=== PATIENT | female | born 1950 | race Caucasian/White ===

== ENCOUNTER 2020-01-09 11:53 | Inpatient (IN) ==
[2020-01-09] MEDS ORDERED: IOPAMIDOL 100 ML BOTTLE IV ONE (11:54)
[2020-01-09] MEDS ORDERED: ONDANSETRON 4 MG/2 ML VIAL IV ONE (12:13)
[2020-01-09] MEDS ORDERED: 0.9 % SODIUM CHLORIDE 500 ML IV ONE (12:13)
--- NOTE | 2020-01-09 12:23 | Emergency Department Note ---
Abdominal Pain HPI - General Chief Complaint: Abdominal Pain Stated Complaint: Abd pain Time Seen by Provider: 01/09/20 11:57 Source: patient Mode of arrival: wheelchair Limitations: no limitations - History of Present Illness HPI Narrative: 69-year-old female patient presents emergency department with chief complaint of worsening lower abdominal pain x2 days. Patient tells me she underwent an EGD study yesterday by Dr. Beckman. During that time she had several areas of her esophagus ablated. She was discharged in good condition. She had some moderate epigastric pain. This is settled into her lower abdomen yesterday. She woke up feeling "better" until she tried to eat. Afterward, she developed exquisite, sharp right lower abdominal pain. She admits to history of appendectomy and total hysterectomy. She admits to some nausea but no vomiting. She admits to a history of UTI but denies any hematuria, dysuria, frequency, urgency, or sensa tion of inability to empty her bladder. She denies focal weakness. She does admit to a recent history of anemia associated with stent placement in October. Since that time she has had some bleeding per rectum. She underwent a blood transfusion 2 days ago prior to the EGD. She has not had any recurrent bleeding from her rectum since ablation was performed yesterday. Review of her active problems shows the following: Angiodysplasia of duodenum, hypertensive renal disease, hypertension, post menopause, intermittent claudication, hypertriglyceridemia, osteopenia, acute pyelonephritis, scoliosis, hypertension, arthritis, vitamin D deficiency, fatigue, acid reflux, peripheral neuropathy, gout, coronary artery disease. - Related Data Home Medications Medication Instructions Recorded Confirmed multivitamin 1 tab PO QDAY 05/22/15 01/09/20 aspirin 81 mg tablet,delayed 81 mg PO QDAY 12/24/15 01/09/20 release omega-3 fatty acids 1,000 mg 4,000 mg PO QDAY cap 11/20/17 01/09/20 capsule omega red 1 capsule PO QDAY 04/26/18 01/09/20 cholecalciferol (vitamin D3) 25 1,000 unit PO QDAY 04/30/19 01/09/20 mcg (1,000 unit) capsule coenzyme Q10 120 mg PO QDAY 07/19/19 01/09/20 fexofenadine 180 mg tablet 180 mg PO QDAY 07/19/19 01/09/20 cranberry extract 300 mg tablet 300 mg PO QDAY 09/30/19 01/09/20 atorvastatin 80 mg tablet 80 mg PO QHS 11/20/19 01/09/20 carvedilol 25 mg tablet 25 mg PO BID 11/20/19 01/09/20 ezetimibe 10 mg tablet 10 mg PO QDAY 11/20/19 01/09/20 febuxostat 80 mg tablet 40 mg PO QDAY tab 11/25/19 01/09/20 soy isofla-blk cohosh-mag bark 155 1 cap PO DAILY 11/25/19 01/09/20 mg capsule vitamin B complex 1 cap PO QDAY 11/25/19 01/09/20 acetaminophen 325 mg tablet 650 mg PO Q4H PRN 12/09/19 01/09/20 Clopidogrel Bisulfate [Plavix] 75 mg PO DAILY 01/06/20 01/09/20 Pantoprazole [Protonix] 40 mg PO ONCE 01/06/20 01/09/20 Previous Rx's Medication Instructions Recorded cyclobenzaprine 10 mg tablet 10 mg PO TID PRN #90 tab 09/03/19 varenicline 1 mg tablet 1 mg PO BID #30 tab 12/09/19 omeprazole 40 mg capsule,delayed 40 mg PO BID #180 cap 12/11/19 release ticagrelor 90 mg tablet 90 mg PO BID #60 tab 12/12/19 Allergies Allergy/AdvReac Type Severity Reaction Status Date / Time Amoxicillin [From Augmentin] Allergy Unknown pt unsure Verified 01/09/20 11:53 clavulanic acid Allergy Unknown pt unsure Verified 01/09/20 11:53 [From Augmentin] clindamycin Allergy Unknown red rash, Verified 01/09/20 11:53 itching Ygfdijt-Suw-Zrx Reductase Allergy Unknown Unknown Verified 01/09/20 11:53 Inhibitor fenofibrate AdvReac Unknown headache, Verified 01/09/20 11:53 body ache Review of Systems All systems ED: reviewed and negative except as stated. Abdominal Pain PMH - Social History Smoking status: Former smoker Physical Exam Limitations: no limitations General appearance: alert, grimacing, other (Well-developed, well-nourished, 69-year-old female patient obviously very uncomfortable as she cradles her lower abdomen.) Head: atraumatic, normocephalic Eye: Present: normal appearance, PERRL, EOMI. Absent: scleral icterus, conjunctival injection ENT: Present: normal oropharynx, mucous membranes moist Neck: Present: trachea midline. Absent: lymphadenopathy, thyromegaly Chest: Present: symmetric chest wall rise Respiratory: Present: normal lung sounds bilaterally. Absent: respiratory distress, rales/crackles, wheezes, stridor, accessory muscle use, prolonged expiratory phase Cardiovascular: Present: regular rate, normal rhythm. Absent: systolic murmur, diastolic murmur Abdominal: Present: soft, tenderness, guarding, normal bowel sounds. Absent: distention, rebound, rigidity, organomegaly, mass Abdominal tenderness: Present: RLQ, LLQ, moderate Extremities: Present: normal inspection, full ROM, normal capillary refill. Absent: pedal edema Back: Absent: CVA tenderness (R), CVA tenderness (L), spinous process tenderness Neurological: Present: alert, oriented X3 Psychiatric: Present: normal affect, normal mood Skin: Present: warm, dry Course Course Narrative: Patient does have a considerable GI history with undergoing EGD yesterday. She had 2 areas that were ablated. Some of her lower abdominal pain may be associate with this procedure. She was afebrile upon presentation with normal other vital signs. However, she does have considerable tenderness with deep palpation to the right lower quadrant. With this in mind a CT scan with contrast of her abdomen/pelvis was ordered and reviewed. A review the patient's laboratory studies show the following: Cysts CBC WBC 13.6, RBC 3.43, hemoglobin 9.9, crit 30.8, platelet count 276. CMP CO2 21, glucose 116, all others within normal limits. CT scan showed moderate retroperitoneal fluid and gas surrounding the descending duodenum with distention in the right retroperitoneal soft tissues to the pericolonic region. Radiologist is most common cause for this finding would be a perforated duodenal ulcer. He recommended consult with general surgery. After reviewing all the data I discussed these findings with my collaborating physician (Dr. Oneil) who in turn consulted with general surgery (Dr. Blakely). At this time Dr. Blakely is consented to admit the patient to the hospital. He will consult with the restorative art embalmer (Dr. Beckman) who performed the EGD yesterday. At this time all further treatment decisions, modalities, and ultimate patient disposition will be carried out by Dr. Blakely. Vital Signs Temperature 98.6 F 01/09/20 11:53 Pulse Rate 73 01/09/20 11:53 Respiratory Rate 16 01/09/20 11:53 Blood Pressure 172/83 01/09/20 11:53 Pulse Oximetry (%) 100 01/09/20 11:53 Temperature 98.6 F 01/09/20 11:53 Pulse Rate 68 01/09/20 14:13 Respiratory Rate 16 01/09/20 11:53 Blood Pressure 145/56 01/09/20 14:13 Pulse Oximetry (%) 92 01/09/20 14:13 Abdominal Pain - Lab Data Result diagrams: 01/09/20 12:24 01/09/20 12:23 Lab Results 01/09/20 01/09/20 Range/Units 12:23 12:24 WBC 13.6 H (4.50-11.00) K/mcL RBC 3.43 L (3.59-5.38) M/mcL Hgb 9.9 L (11.2-15.7) g/dL Hct 30.8 L (34.1-44.9) % POC Hct 31.0 L (36.0-48.0) % MCV 89.8 (80.0-100.0) fL MCH 28.9 (26.0-34.0) pg MCHC 32.1 (31.0-36.0) g/dL RDW 14.3 (11.5-14.5) % Plt Count 276 (140-440) K/mcL MPV 8.7 (7.4-10.4) fL Gran % 83.5 H (38.0-78.0) % Lymph % (Auto) 7.8 L (15.5-49.0) % [place] % (Auto) 7.2 (1.0-12.0) % Eos % (Auto) 1.2 (0.0-7.0) % Baso % (Auto) 0.3 (0.0-2.0) % Gran # 11.36 H (1.80-8.00) K/mcL Lymph # (Auto) 1.06 L (1.50-4.80) K/mcL [place] # (Auto) 0.98 H (0.10-0.90) K/mcL Eos # (Auto) 0.16 (0.00-0.70) K/mcL Baso # (Auto) 0.04 (0.00-0.30) K/mcL POC Sodium 140 (133-145) mmol/L Sodium 141 (133-145) mmol/L POC Potassium 3.6 (3.3-5.1) mmol/L Potassium 3.6 (3.3-5.1) mmol/L POC Chloride 107 (96-108) mmol/L Chloride 104 (96-108) mmol/L Carbon Dioxide 21 L (22-30) mmol/L POC Total CO2 21 L (22-30) mmol/L Anion Gap 16.0 (8-16) POC BUN 20 (8-23) mg/dl BUN 20 (8-23) mg/dl Creatinine 1.0 (0.6-1.1) mg/dl POC Creatinine 1.0 (0.6-1.1) mg/dl GFR Calculation 57 Glucose 116 H (70-105) mg/dL POC Glucose 117 H (70-105) mg/dL Calcium 9.5 (8.6-10.4) mg/dl POC WB Ioniz Calcium 1.23 (1.16-1.32) mmol/L Total Bilirubin 0.4 (0.0-1.0) mg/dL AST 20 (0-37) U/l ALT 26 (0-40) U/l Alkaline Phosphatase 91 (39-117) U/L Total Protein 6.7 (5.9-8.4) gm/dL Albumin 4.1 (3.2-5.2) gm/dL Globulin 2.6 (2.2-3.7) gm/dL Albumin/Globulin Ratio 1.6 (1.0-2.3) - Radiology Data Radiology results reviewed: Yes I reviewed the patient's radiology results. Ordering Physician: Mak Roach PA-C Date of Service: 01/09/20 Procedure(s): CT abdomen pelvis w con Accession Number(s): [id number] CLINICAL INFORMATION: Right lower quadrant pain COMPARISON: None. TECHNIQUE: Following enteric contrast, 80 cc of Isovue-370 were injected intravenously, and 60 seconds later, 0.625 mm helical slices were obtained from the mid heart through the subtrochanteric regions. Following reconstruction, 2.5 mm sagittal, coronal and axial reformatted images were processed and reviewed at bone, lung and soft tissue windows. Five minutes later, 0.625 mm helical slices were obtained from the mid heart through the kidneys and viewed at soft tissue windows.The exam was performed using radiation dose optimization techniques including, but not limited to, automated exposure control, adjustment of the mA and/or kV according to patient size and use of iterative reconstruction technique. FINDINGS: Lung bases show minimal scattered fibrosis and/or atelectasis. No effusion. The visualized heart is mildly enlarged. There is calcific plaque in the coronary arteries. Abdominal images show 3-4 simple cysts within the liver ranging up to 1.5 cm in the david hepatis. No significant focal hepatic abnormality. The gallbladder and bile ducts are normal in CBD is 5 mm. Scattered simple cysts seen in both kidneys ranging up to 3 cm mid right kidney. A 20 mm well-circumscribed soft tissue nodule left adrenal gland represents a benign adenoma. It is unchanged from a 03/18/2019 are MRI. The right adrenal gland and spleen are normal. The aorta is normal diameter however, there is very heavy calcific plaque in the infrarenal segment. There is also heavy calcific plaque in the common iliac arteries resulting in at least 50% stenosis. 50% or greater stenosis of the celiac, SMA and left renal artery origins also present Pelvic images show hysterectomy and oophorectomy changes. Urinary bladder shows mild cystocele. Moderate gas and fluid are seen in the retroperitoneal tissues surrounding the descending duodenum. Small amount of gas and fluid descends in the posterior right retroperitoneal soft tissues all the way to the pericecal region. 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 The remainder of the small bowel normal. Sigmoid diverticulosis appreciated but the remaining colon is normal. The appendix is surgically absent. Bone windows show severe complex scoliotic curve with chronic lateral compression fractures of L2-L3 and L4. IMPRESSION: 1. Moderate retroperitoneal fluid and gas surrounding the descending duodenum with descension in the right retroperitoneal soft tissues to the pericolonic region. Most common cause for this finding would be a perforated duodenal ulcer. Please consult general surgery. 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 2. The appendix is surgically absent. 3. Sigmoid diverticulosis - no evidence of diverticulitis. 4. Heavy atherosclerotic plaque in the abdominal aorta and branches. There are likely hemodynamically significant stenosis in both common iliac, external iliac arteries and the celiac, SMA and left renal artery origins. Interpreted and Authenticated by: Idris Ace 01/09/20 Disposition Pt seen by REHANGER/PA only: Yes Clinical Impression: Abdominal pain Qualifiers: Abdominal location: generalized Qualified Code(s): R10.84 - Generalized abdominal pain Disposition: Xfer As Inpt ([facility]) Condition: Good Referrals: Leisa Auguste ARNP [Primary Care Provider] -
[2020-01-09] MEDS: HYDROmorphone 0.5 MG/0.5 ML SYRINGE IV PRN ×2 (12:30→12:49)
[2020-01-09 12:36] LABS: POC Blood Urea Nitrogen 20 mg/dl (8-23); POC CO2 21 mmol/L (22-30); POC Calcium, Ionized 1.23 mmol/L (1.16-1.32); POC Chloride 107 mmol/L (96-108); POC Glucose, Random 117 mg/dL (70-105); POC Potassium 3.6 mmol/L (3.3-5.1); POC Sodium 140 mmol/L (133-145)
[2020-01-09 13:14] LABS: Basophils # (Auto) 0.04 K/mcL (0.00-0.30); Basophils % (Auto) 0.3 % (0.0-2.0); Eosinophils # (Auto) 0.16 K/mcL (0.00-0.70); Eosinophils % (Auto) 1.2 % (0.0-7.0); Granulocytes % (Auto) 83.5 % (38.0-78.0); Hematocrit 30.8 % (34.1-44.9); Hemoglobin 9.9 g/dL (11.2-15.7); Lymphocytes # (Auto) 1.06 K/mcL (1.50-4.80); Lymphocytes % (Auto) 7.8 % (15.5-49.0); Mean Cell Volume 89.8 fL (80.0-100.0); Mean Corpuscular HGB Conc 32.1 g/dL (31.0-36.0); Mean Platelet Volume 8.7 fL (7.4-10.4); Monocytes # (Auto) 0.98 K/mcL (0.10-0.90); Monocytes % (Auto) 7.2 % (1.0-12.0); Platelet Count 276 K/mcL (140-440); RBC 3.43 M/mcL (3.59-5.38); Red Cell Distribution Width 14.3 % (11.5-14.5); WBC 13.6 K/mcL (4.50-11.00)
[2020-01-09 13:37] LABS: ALT/SGPT 26 U/l (0-40); AST/SGOT 20 U/l (0-37); Albumin 4.1 gm/dL (3.2-5.2); Albumin/Globulin Ratio 1.6 (1.0-2.3); Alkaline Phosphatase 91 U/L (39-117); Bilirubin,Total 0.4 mg/dL (0.0-1.0); Blood Urea Nitrogen 20 mg/dl (8-23); Calcium 9.5 mg/dl (8.6-10.4); Carbon Dioxide 21 mmol/L (22-30); Chloride 104 mmol/L (96-108); Globulin 2.6 gm/dL (2.2-3.7); Glomerular Filtration Rate 57; Glucose 116 mg/dL (70-105)
--- NOTE | 2020-01-09 14:08 | Cat Scan Report ---
CLINICAL INFORMATION: Right lower quadrant pain COMPARISON: None. TECHNIQUE: Following enteric contrast, 80 cc of Isovue-370 were injected intravenously, and 60 seconds later, 0.625 mm helical slices were obtained from the mid heart through the subtrochanteric regions. Following reconstruction, 2.5 mm sagittal, coronal and axial reformatted images were processed and reviewed at bone, lung and soft tissue windows. Five minutes later, 0.625 mm helical slices were obtained from the mid heart through the kidneys and viewed at soft tissue windows.The exam was performed using radiation dose optimization techniques including, but not limited to, automated exposure control, adjustment of the mA and/or kV according to patient size and use of iterative reconstruction technique. FINDINGS: Lung bases show minimal scattered fibrosis and/or atelectasis. No effusion. The visualized heart is mildly enlarged. There is calcific plaque in the coronary arteries. Abdominal images show 3-4 simple cysts within the liver ranging up to 1.5 cm in the david hepatis. No significant focal hepatic abnormality. The gallbladder and bile ducts are normal in CBD is 5 mm. Scattered simple cysts seen in both kidneys ranging up to 3 cm mid right kidney. A 20 mm well-circumscribed soft tissue nodule left adrenal gland represents a benign adenoma. It is unchanged from a 03/18/2019 are MRI. The right adrenal gland and spleen are normal. The aorta is normal diameter however, there is very heavy calcific plaque in the infrarenal segment. There is also heavy calcific plaque in the common iliac arteries resulting in at least 50% stenosis. 50% or greater stenosis of the celiac, SMA and left renal artery origins also present Pelvic images show hysterectomy and oophorectomy changes. Urinary bladder shows mild cystocele. Moderate gas and fluid are seen in the retroperitoneal tissues surrounding the descending duodenum. Small amount of gas and fluid descends in the posterior right retroperitoneal soft tissues all the way to the pericecal region. 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 The remainder of the small bowel normal. Sigmoid diverticulosis appreciated but the remaining colon is normal. The appendix is surgically absent. Bone windows show severe complex scoliotic curve with chronic lateral compression fractures of L2-L3 and L4. IMPRESSION: 1. Moderate retroperitoneal fluid and gas surrounding the descending duodenum with descension in the right retroperitoneal soft tissues to the pericolonic region. Most common cause for this finding would be a perforated duodenal ulcer. Please consult general surgery. 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 2. The appendix is surgically absent. 3. Sigmoid diverticulosis - no evidence of diverticulitis. 4. Heavy atherosclerotic plaque in the abdominal aorta and branches. There are likely hemodynamically significant stenosis in both common iliac, external iliac arteries and the celiac, SMA and left renal artery origins. Interpreted and Authenticated by: Idris Ace 01/09/20
--- NOTE | 2020-01-09 15:27 | General Surg History&Physical ---
History of Present Illness Patient information: Note initiated : 01/09/20 at 3:24 pm Service Date, if different from initiated Date: [] Patient: Rema Benitez 69 y/o F admitted on for Abd Pain . Chief Complaint: [] HPI: Ms. Benitez is a 69 year old F status post upper endoscopy yesterday with findings AV malformations. She had 2 of these cauterized. She developed pain in the postprocedure period which continued overnight. She will return to the ER today with findings of severe epigastric and right upper quadrant pain. She she had CT of the abdomen which showed free air around the duodenum with some free fluid in the periduodenal space compatible with perforation. Her white blood count is 13,000. Patient has small perforation of duodenum from cauterization and will be treated and observe nonoperatively. It is anticipated that this should heal and she will not need operative therapy Review of Systems - Constitutional fatigue, malaise, weakness - Cardiovascular claudication, no chest pain at rest, no chest pain with activity, no palpatations, no rapid heart rate - Respiratory no cough, no dyspnea on exertion, no wheezing, no chest congestion - Gastrointestinal abdominal pain, bloating, heartburn, nausea, no vomiting - Genitourinary Genitourinary: urinary incontinence - Musculoskeletal arthralgias, back pain, other (mmmmmmmmultiple joint pain) - Integumentary no new lesions, no non-healing lesions, no pruritus, no rash - Neurological no confusion, no dizziness - Psychiatric anxiety, no depression - Endocrine fatigue, no palpitations - Hematologic/Lymphatic no easy bleeding, no easy bruising, no lymphadenopathy - Allergic/Immunologic no tongue swelling, no throat swelling, no uticaria, no wheezing, no lip swelling Past History Past medical history: Coronary artery disease status post stent of right coronary artery Hypertension Chronic kidney disease Degenerative joint disease Chronic back pain Peripheral vascular disease Past surgical history: Abdominal hysterectomy Hemorrhoidectomy Exploratory laparotomy Appendectomy Tubal ligation External iliac angioplasty with stent Past family history: Hypertension Diabetes mellitus Coronary artery disease Prostate cancer Lung cancer Past social history: Former smoker Denies alcohol use Denies drug use Medications and Allergies Home Medications Medication Instructions Recorded Confirmed Type multivitamin 1 tab PO QDAY 05/22/15 01/09/20 History aspirin 81 mg tablet,delayed 81 mg PO QDAY 12/24/15 01/09/20 History release omega-3 fatty acids 1,000 mg 4,000 mg PO QDAY cap 11/20/17 01/09/20 History capsule omega red 1 capsule PO QDAY 04/26/18 01/09/20 History cholecalciferol (vitamin D3) 25 1,000 unit PO QDAY 04/30/19 01/09/20 History mcg (1,000 unit) capsule coenzyme Q10 120 mg PO QDAY 07/19/19 01/09/20 History fexofenadine 180 mg tablet 180 mg PO QDAY 07/19/19 01/09/20 History cyclobenzaprine 10 mg tablet 10 mg PO TID PRN #90 tab 09/03/19 01/09/20 Rx cranberry extract 300 mg tablet 300 mg PO QDAY 09/30/19 01/09/20 History atorvastatin 80 mg tablet 80 mg PO QHS 11/20/19 01/09/20 History carvedilol 25 mg tablet 25 mg PO BID 11/20/19 01/09/20 History ezetimibe 10 mg tablet 10 mg PO QDAY 11/20/19 01/09/20 History febuxostat 80 mg tablet 40 mg PO QDAY tab 11/25/19 01/09/20 History soy isofla-blk cohosh-mag bark 155 1 cap PO DAILY 11/25/19 01/09/20 History mg capsule vitamin B complex 1 cap PO QDAY 11/25/19 01/09/20 History acetaminophen 325 mg tablet 650 mg PO Q4H PRN 12/09/19 01/09/20 History varenicline 1 mg tablet 1 mg PO BID #30 tab 12/09/19 01/09/20 Rx omeprazole 40 mg capsule,delayed 40 mg PO BID #180 cap 12/11/19 01/09/20 Rx release ticagrelor 90 mg tablet 90 mg PO BID #60 tab 12/12/19 01/09/20 Rx Clopidogrel Bisulfate [Plavix] 75 mg PO DAILY 01/06/20 01/09/20 History Pantoprazole [Protonix] 40 mg PO ONCE 01/06/20 01/09/20 History Allergies Allergy/AdvReac Type Severity Reaction Status Date / Time Amoxicillin [From Augmentin] Allergy Unknown pt unsure Verified 01/09/20 11:53 clavulanic acid Allergy Unknown pt unsure Verified 01/09/20 11:53 [From Augmentin] clindamycin Allergy Unknown red rash, Verified 01/09/20 11:53 itching Ouksmtj-Qog-Lic Reductase Allergy Unknown Unknown Verified 01/09/20 11:53 Inhibitor fenofibrate AdvReac Unknown headache, Verified 01/09/20 11:53 body ache Exam Temp Pulse Resp BP Pulse Ox 98.6 F 67 16 168/73 100 01/09/20 11:53 01/09/20 15:04 01/09/20 11:53 01/09/20 15:04 01/09/20 15:04 - General physical appearance well developed, well nourished, no distress - Eyes PERRL, normal ocular movement - ENT normal pinna, normal nares, normal mucosa, no hearing loss, no congestion - Head Head exam IM: Present: atraumatic, normocephalic - Neck no masses, no bruits, trachea midline, no lymphadenopathy, no venous distension - Cardiovascular Cardiovascular exam IM: Present: normal rate and rhythm - Respiratory normal expansion, normal respiratory effort, clear to percussion, clear to auscultation - Abdomen Abdomen: Present: soft, tender (epigastric and right upper quadrant; mild distention;right lower quadrant), bowel sounds, guarding Hernia: Present: none - Genitourinary Present: normal external genitalia - Integumentary Present: no rash, no growths, no abnormal pigmentation - Neurologic Present: normal coordination, normal sensation - Musculoskeletal Present: normal gait, normal posture - Psychiatric Present: oriented to time, oriented to person, oriented to place, speech is normal, memory intact Assessment and Plan (1) Duodenal perforation Status: Acute (2) Angiodysplasia of duodenum Status: Acute (3) CAD (coronary artery disease) Status: Chronic Qualifiers: Coronary Disease-Associated Artery/Lesion type: unspecified vessel or lesion type [place] vs. transplanted heart: [place] heart Associated angina: angina p resence unspecified Qualified Code(s): I25.10 - Atherosclerotic heart disease of [place] coronary artery without angina pectoris (4) CKD (chronic kidney disease) Status: Chronic Qualifiers: Chronic kidney disease stage: stage 2 (mild) Qualified Code(s): N18.2 - Chronic kidney disease, stage 2 (mild)
[2020-01-09] MEDS ORDERED: CEFEPIME 2 GM VIAL IV SCH ×2 (16:00→17:00)
[2020-01-09] MEDS ORDERED: LORazepam 2 MG/ML VIAL IV PRN (16:19)
[2020-01-09] MEDS ORDERED: ONDANSETRON 4 MG/2 ML VIAL IV PRN (16:19)
[2020-01-09] MEDS ORDERED: PROMETHAZINE 25 MG/ML VIAL IV PRN (16:19)
[2020-01-09] MEDS ORDERED: HYDROmorphone 0.5 MG/0.5 ML SYRINGE IV PRN (16:19)
[2020-01-09] MEDS ORDERED: PANTOPRAZOLE 40 MG VIAL IV SCH (17:00)
[2020-01-09] MEDS: 0.9 % SODIUM CHLORIDE 1,000 ML IV SCH (17:01)
[2020-01-09] MEDS: PANTOPRAZOLE 40 MG VIAL IV SCH (17:07)
[2020-01-09] MEDS ORDERED: CARVEDILOL 12.5 MG TABLET PO SCH (17:30)
[2020-01-09] MEDS: CEFEPIME 2 GM VIAL IV SCH (19:13)
[2020-01-09] MEDS: ACETAMINOPHEN 1,000 MG/100 ML BOTTLE IV PRN (19:14)
[2020-01-09] MEDS: 0.9 % SODIUM CHLORIDE 10 ML SYRINGE IV SCH (20:19)
[2020-01-09] MEDS: CARVEDILOL 12.5 MG TABLET PO SCH (20:33)
[2020-01-10] MEDS ORDERED: CEFEPIME 2 GM VIAL IV SCH
[2020-01-10] MEDS: 0.9 % SODIUM CHLORIDE 1,000 ML IV SCH ×3 (01:15→19:35)
[2020-01-10] MEDS: 0.9 % SODIUM CHLORIDE 10 ML SYRINGE IV SCH ×3 (04:42→20:54)
[2020-01-10] MEDS: PANTOPRAZOLE 40 MG VIAL IV SCH ×2 (07:29→16:41)
--- NOTE | 2020-01-10 08:16 | XRay Report ---
CLINICAL INFORMATION: preop evaluation COMPARISON: 07/02/2019 FINDINGS: Heart size, mediastinum and pulmonary vessels are normal. Mild bibasilar airspace disease is more likely atelectasis rather than developing infiltrate. No effusions. Complex scoliotic curve of the thoracic and lumbar spine. NG tip overlies the gastric fundus. IMPRESSION: Mild patchy bibasilar airspace disease - most likely atelectasis. Interpreted and Authenticated by: Idris Ace 01/10/20
--- NOTE | 2020-01-10 08:20 | XRay Report ---
CLINICAL INFORMATION: NG placement COMPARISON: None. FINDINGS: NG tube tip overlies the gastric fundus. Stool gas pattern unremarkable. No free air, soft tissue masses or organomegaly. Right retroperitoneal air, known from probable duodenal rupture on recent abdominal CT, is not well visualized on plain film IMPRESSION: NG tube overlying the gastric fundus. Interpreted and Authenticated by: Idris Ace 01/10/20
[2020-01-10] MEDS ORDERED: CLOPIDOGREL 75 MG TABLET PO SCH (09:00)
[2020-01-10] MEDS: CEFEPIME 2 GM VIAL IV SCH ×2 (09:19→20:41)
--- NOTE | 2020-01-10 10:22 | General Surgery Progress Note ---
Subjective Patient reports: feels better, still having pain, pain is less, no flatus, no bowel movement, afebrile Narrative: Note initiated : 01/10/20 at 10:20 am Service Date, if different from initiated Date: [] Patient: Rema Benitez 69 y/o F admitted on 01/09/20 for Perforated duodenum. Chief Complaint: [patient states that she feels better. She has much less pain. She denies nausea. She has been afebrile. She denies having flatus since admission. She denies pleuritic chest. A.m. labs are pending.] Objective Temp Pulse Resp BP Pulse Ox 98.9 F 74 18 144/63 97 01/10/20 07:41 01/10/20 07:41 01/10/20 07:41 01/10/20 07:41 01/10/20 07:45 - Additional Data Intake & Output - Last 24 hours: Intake & Output 01/08/20 01/09/20 01/10/20 01/11/20 05:59 05:59 05:59 05:59 Intake Total 1100 Output Total 925 200 Balance 175 -200 Weight 130 lb - General physical appearance well developed, well nourished, moderate distress - Eyes PERRL, normal ocular movement - ENT normal pinna, normal nares, normal mucosa, no hearing loss, no congestion - Neck no masses, no bruits, trachea midline, no lymphadenopathy, no venous distension - Respiratory normal expansion, normal respiratory effort, clear to auscultation - Cardiovascular Cardiovascular exam: Present: normal rate and rhythm, RRR, +S1, +S2. Absent: JVD, tachycardia - Abdomen tender (mild tenderness in epigastrium; less tenderness right lower quadrant), bowel sounds (present), surgical scars (none), masses (none) - Integumentary no rash, no growths, no abnormal pigmentation - Neurologic normal coordination, normal sensation - Musculoskeletal normal gait, normal posture - Psychiatric oriented to time, oriented to person, oriented to place, speech is normal, memory intact - Labs 01/09/20 12:24 01/09/20 12:23 Diabetes panel 01/09/20 Range/Units 12:23 Sodium 141 (133-145) mmol/L Potassium 3.6 (3.3-5.1) mmol/L Chloride 104 (96-108) mmol/L Carbon Dioxide 21 L (22-30) mmol/L BUN 20 (8-23) mg/dl Creatinine 1.0 (0.6-1.1) mg/dl Glucose 116 H (70-105) mg/dL Calcium 9.5 (8.6-10.4) mg/dl AST 20 (0-37) U/l ALT 26 (0-40) U/l Alkaline Phosphatase 91 (39-117) U/L Total Protein 6.7 (5.9-8.4) gm/dL Albumin 4.1 (3.2-5.2) gm/dL Calcium panel 01/09/20 Range/Units 12:23 Calcium 9.5 (8.6-10.4) mg/dl Albumin 4.1 (3.2-5.2) gm/dL Pituitary panel 01/09/20 Range/Units 12:23 Sodium 141 (133-145) mmol/L Potassium 3.6 (3.3-5.1) mmol/L Chloride 104 (96-108) mmol/L Carbon Dioxide 21 L (22-30) mmol/L BUN 20 (8-23) mg/dl Creatinine 1.0 (0.6-1.1) mg/dl Glucose 116 H (70-105) mg/dL Calcium 9.5 (8.6-10.4) mg/dl Adrenal panel 01/09/20 Range/Units 12:23 Sodium 141 (133-145) mmol/L Potassium 3.6 (3.3-5.1) mmol/L Chloride 104 (96-108) mmol/L Carbon Dioxide 21 L (22-30) mmol/L BUN 20 (8-23) mg/dl Creatinine 1.0 (0.6-1.1) mg/dl Glucose 116 H (70-105) mg/dL Calcium 9.5 (8.6-10.4) mg/dl Total Bilirubin 0.4 (0.0-1.0) mg/dL AST 20 (0-37) U/l ALT 26 (0-40) U/l Alkaline Phosphatase 91 (39-117) U/L Total Protein 6.7 (5.9-8.4) gm/dL Albumin 4.1 (3.2-5.2) gm/dL Assessment and Plan (1) Duodenal perforation Status: Acute Assessment and plan: Patient is clinically stable and is responding to therapy. She does have atelectasis basilar aspect of her lung and inspiro- care is encouraged. She is afebrile Current Visit: Yes (2) Angiodysplasia of duodenum Status: Acute Current Visit: No (3) CAD (coronary artery disease) Status: Chronic Current Visit: No (4) CKD (chronic kidney disease) Status: Chronic Current Visit: No - Time Spent With Patient Total time spent is greater than 50% in coordination of care (as documented) at patient's floor/unit and/or counseling patient:
[2020-01-10] MEDS: CARVEDILOL 12.5 MG TABLET PO SCH ×2 (11:29→17:38)
[2020-01-10] MEDS: CLOPIDOGREL 75 MG TABLET PO SCH (11:29)
[2020-01-10 12:47] LABS: Basophils # (Auto) 0.03 K/mcL (0.00-0.30); Basophils % (Auto) 0.2 % (0.0-2.0); Eosinophils # (Auto) 0.02 K/mcL (0.00-0.70); Eosinophils % (Auto) 0.1 % (0.0-7.0); Granulocytes % (Auto) 83.1 % (38.0-78.0); Hematocrit 26.5 % (34.1-44.9); Hemoglobin 8.4 g/dL (11.2-15.7); Lymphocytes # (Auto) 1.13 K/mcL (1.50-4.80); Lymphocytes % (Auto) 7.5 % (15.5-49.0); Mean Cell Volume 91.1 fL (80.0-100.0); Mean Corpuscular HGB Conc 31.7 g/dL (31.0-36.0); Mean Platelet Volume 8.9 fL (7.4-10.4); Monocytes # (Auto) 1.37 K/mcL (0.10-0.90); Monocytes % (Auto) 9.1 % (1.0-12.0); Platelet Count 216 K/mcL (140-440); RBC 2.91 M/mcL (3.59-5.38); Red Cell Distribution Width 14.5 % (11.5-14.5); WBC 15.1 K/mcL (4.50-11.00)
[2020-01-11] MEDS: 0.9 % SODIUM CHLORIDE 1,000 ML IV SCH ×5 (00:25→16:16)
[2020-01-11] MEDS: 0.9 % SODIUM CHLORIDE 10 ML SYRINGE IV SCH ×3 (04:09→21:08)
[2020-01-11 06:31] LABS: Basophils # (Auto) 0.03 K/mcL (0.00-0.30); Basophils % (Auto) 0.3 % (0.0-2.0); Eosinophils # (Auto) 0.05 K/mcL (0.00-0.70); Eosinophils % (Auto) 0.4 % (0.0-7.0); Granulocytes % (Auto) 82.1 % (38.0-78.0); Hematocrit 26.3 % (34.1-44.9); Hemoglobin 8.3 g/dL (11.2-15.7); Lymphocytes % (Auto) 9.5 % (15.5-49.0); Mean Cell Volume 90.1 fL (80.0-100.0); Mean Corpuscular HGB Conc 31.6 g/dL (31.0-36.0); Mean Platelet Volume 8.8 fL (7.4-10.4); Monocytes % (Auto) 7.7 % (1.0-12.0); Platelet Count 213 K/mcL (140-440); RBC 2.92 M/mcL (3.59-5.38); Red Cell Distribution Width 14.3 % (11.5-14.5); WBC 11.6 K/mcL (4.50-11.00)
[2020-01-11 07:03] LABS: ALT/SGPT 15 U/l (0-40); AST/SGOT 11 U/l (0-37); Albumin/Globulin Ratio 1.1 (1.0-2.3); Alkaline Phosphatase 70 U/L (39-117); Bilirubin,Direct < 0.2 mg/dL (0.0-0.3); Bilirubin,Total 0.3 mg/dL (0.0-1.0); Blood Urea Nitrogen 12 mg/dl (8-23); Calcium 8.6 mg/dl (8.6-10.4); Carbon Dioxide 20 mmol/L (22-30); Globulin 2.7 gm/dL (2.2-3.7); Glomerular Filtration Rate 75; Glucose 74 mg/dL (70-105); Lactate Dehydrogenase 131 U/L (94-250); Phosphorous 2.7 mg/dL (2.7-4.5); Triglycerides 88 mg/dl (<150); Uric Acid 3.8 mg/dL (2.5-8.0)
[2020-01-11 07:05] LABS: Chloride 109 mmol/L (96-108)
[2020-01-11] MEDS: PANTOPRAZOLE 40 MG VIAL IV SCH ×2 (07:31→17:34)
[2020-01-11] MEDS: CLOPIDOGREL 75 MG TABLET PO SCH (08:05)
[2020-01-11] MEDS: CARVEDILOL 12.5 MG TABLET PO SCH ×2 (08:06→17:34)
[2020-01-11] MEDS: CEFEPIME 2 GM VIAL IV SCH ×2 (08:11→20:58)
[2020-01-11] MEDS ORDERED: MAGNESIUM SULFATE 4 GM/100 ML BAG IV ONE ×2 (11:00→12:00)
--- NOTE | 2020-01-11 11:19 | General Surgery Progress Note ---
Subjective Patient reports: feels better, pain is less, flatus, afebrile Narrative: Note initiated : 01/11/20 at 11:16 am Service Date, if different from initiated Date: [] Patient: Rema Benitez 69 y/o F admitted on 01/09/20 for Perforated duodenum. Chief Complaint: [patient continues to improve. She has less pain. She does have some mouth soreness right lower quadrant. She remains afebrile.] Objective Temp Pulse Resp BP Pulse Ox 98.0 F 74 20 147/65 95 01/11/20 08:00 01/11/20 08:00 01/11/20 08:00 01/11/20 08:00 01/11/20 08:00 - Additional Data Intake & Output - Last 24 hours: Intake & Output 01/09/20 01/10/20 01/11/20 01/12/20 05:59 05:59 05:59 05:59 Intake Total 1100 3175 100 Output Total 925 2000 1200 Balance 175 1175 -1100 Weight 130 lb 131 lb 8 oz - General physical appearance well developed, well nourished, no distress - Eyes PERRL, normal ocular movement - ENT normal pinna, normal nares, normal mucosa, no hearing loss, no congestion - Neck no masses, no bruits, trachea midline, no lymphadenopathy, no venous distension - Respiratory normal expansion, normal respiratory effort, clear to auscultation - Cardiovascular Cardiovascular exam: Present: normal rate and rhythm, RRR, +S1, +S2. Absent: JVD, tachycardia - Abdomen tender (moderate tenderness right lower quadrant laterally; no guarding or rebound; good active bowel sounds; no epigastric tenderness), bowel sounds (pres ent), surgical scars (none), masses (none) - Integumentary no rash, no growths, no abnormal pigmentation - Neurologic normal coordination, normal sensation - Musculoskeletal normal gait, normal posture - Psychiatric oriented to time, oriented to person, oriented to place, speech is normal, memor y intact - Labs 01/11/20 05:15 01/11/20 05:15 Diabetes panel 01/11/20 Range/Units 05:15 Sodium 142 (133-145) mmol/L Potassium 3.3 (3.3-5.1) mmol/L Chloride 109 H (96-108) mmol/L Carbon Dioxide 20 L (22-30) mmol/L BUN 12 (8-23) mg/dl Creatinine 0.8 (0.6-1.1) mg/dl Glucose 74 (70-105) mg/dL Calcium 8.6 (8.6-10.4) mg/dl AST 11 (0-37) U/l ALT 15 (0-40) U/l Alkaline Phosphatase 70 (39-117) U/L Total Protein 5.7 L (5.9-8.4) gm/dL Albumin 3.0 L (3.2-5.2) gm/dL Triglycerides 88 (<150) mg/dl Calcium panel 01/11/20 Range/Units 05:15 Calcium 8.6 (8.6-10.4) mg/dl Phosphorus 2.7 (2.7-4.5) mg/dL Albumin 3.0 L (3.2-5.2) gm/dL Pituitary panel 01/11/20 Range/Units 05:15 Sodium 142 (133-145) mmol/L Potassium 3.3 (3.3-5.1) mmol/L Chloride 109 H (96-108) mmol/L Carbon Dioxide 20 L (22-30) mmol/L BUN 12 (8-23) mg/dl Creatinine 0.8 (0.6-1.1) mg/dl Glucose 74 (70-105) mg/dL Calcium 8.6 (8.6-10.4) mg/dl Adrenal panel 01/11/20 Range/Units 05:15 Sodium 142 (133-145) mmol/L Potassium 3.3 (3.3-5.1) mmol/L Chloride 109 H (96-108) mmol/L Carbon Dioxide 20 L (22-30) mmol/L BUN 12 (8-23) mg/dl Creatinine 0.8 (0.6-1.1) mg/dl Glucose 74 (70-105) mg/dL Calcium 8.6 (8.6-10.4) mg/dl Total Bilirubin 0.3 (0.0-1.0) mg/dL AST 11 (0-37) U/l ALT 15 (0-40) U/l Alkaline Phosphatase 70 (39-117) U/L Total Protein 5.7 L (5.9-8.4) gm/dL Albumin 3.0 L (3.2-5.2) gm/dL Assessment and Plan (1) Duodenal perforation Status: Acute Assessment and plan: Patient is clinically stable and is responding to therapy. We'll repeat CT of abdomen in the morning Check amylase lipase in the a.m. Replace magnesium Current Visit: Yes (2) Angiodysplasia of duodenum Status: Acute Current Visit: No (3) CAD (coronary artery disease) Status: Chronic Current Visit: No (4) CKD (chronic kidney disease) Status: Chronic Current Visit: No - Time Spent With Patient Total time spent is greater than 50% in coordination of care (as documented) at patient's floor/unit and/or counseling patient:
[2020-01-12] MEDS: 0.9 % SODIUM CHLORIDE 1,000 ML IV SCH ×4 (00:17→15:21)
[2020-01-12] MEDS: 0.9 % SODIUM CHLORIDE 10 ML SYRINGE IV SCH ×4 (06:01→20:23)
[2020-01-12 06:09] LABS: Basophils # (Auto) 0.03 K/mcL (0.00-0.30); Basophils % (Auto) 0.3 % (0.0-2.0); Eosinophils # (Auto) 0.23 K/mcL (0.00-0.70); Eosinophils % (Auto) 2.1 % (0.0-7.0); Granulocytes % (Auto) 81.8 % (38.0-78.0); Hematocrit 26.5 % (34.1-44.9); Hemoglobin 8.3 g/dL (11.2-15.7); Lymphocytes # (Auto) 0.98 K/mcL (1.50-4.80); Lymphocytes % (Auto) 8.8 % (15.5-49.0); Mean Cell Volume 90.1 fL (80.0-100.0); Mean Corpuscular HGB Conc 31.3 g/dL (31.0-36.0); Mean Platelet Volume 8.8 fL (7.4-10.4); Monocytes # (Auto) 0.78 K/mcL (0.10-0.90); Platelet Count 228 K/mcL (140-440); RBC 2.94 M/mcL (3.59-5.38); Red Cell Distribution Width 14.3 % (11.5-14.5); WBC 11.1 K/mcL (4.50-11.00)
[2020-01-12 06:29] LABS: ALT/SGPT 13 U/l (0-40); AST/SGOT 12 U/l (0-37); Albumin/Globulin Ratio 1.1 (1.0-2.3); Alkaline Phosphatase 71 U/L (39-117); Bilirubin,Direct < 0.2 mg/dL (0.0-0.3); Bilirubin,Total 0.4 mg/dL (0.0-1.0); Blood Urea Nitrogen 15 mg/dl (8-23); Calcium 8.4 mg/dl (8.6-10.4); Carbon Dioxide 18 mmol/L (22-30); Globulin 2.8 gm/dL (2.2-3.7); Glomerular Filtration Rate 88; Glucose 52 mg/dL (70-105); Lactate Dehydrogenase 130 U/L (94-250); Phosphorous 2.7 mg/dL (2.7-4.5); Triglycerides 99 mg/dl (<150); Uric Acid 5.4 mg/dL (2.5-8.0)
[2020-01-12 06:30] LABS: Chloride 109 mmol/L (96-108)
[2020-01-12] MEDS: PANTOPRAZOLE 40 MG VIAL IV SCH ×2 (07:23→17:10)
[2020-01-12] MEDS: CLOPIDOGREL 75 MG TABLET PO SCH (08:10)
[2020-01-12] MEDS: CEFEPIME 2 GM VIAL IV SCH ×2 (08:11→20:22)
[2020-01-12] MEDS: CARVEDILOL 12.5 MG TABLET PO SCH ×2 (08:11→17:11)
[2020-01-12] MEDS ORDERED: IOPAMIDOL 100 ML BOTTLE IV ONE (08:57)
--- NOTE | 2020-01-12 12:26 | Cat Scan Report ---
CLINICAL INFORMATION: COMPARISON: None. TECHNIQUE: Following enteric contrast, 80 cc of Isovue-370 were injected intravenously, and 60 seconds later, 0.625 mm helical slices were obtained from the mid heart through the subtrochanteric regions. Following reconstruction, 2.5 mm sagittal, coronal and axial reformatted images were processed and reviewed at bone, lung and soft tissue windows. Five minutes later, 0.625 mm helical slices were obtained from the mid heart through the kidneys and viewed at soft tissue windows.The exam was performed using radiation dose optimization techniques including, but not limited to, automated exposure control, adjustment of the mA and/or kV according to patient size and use of iterative reconstruction technique. FINDINGS: Lung bases show minimal scattered fibrosis and/or atelectasis. No effusion. The visualized heart is mildly enlarged. There is calcific plaque in the coronary arteries. Abdominal images show 3-4 simple cysts within the liver ranging up to 1.5 cm in the david hepatis. No significant focal hepatic abnormality. The gallbladder and bile ducts are normal in CBD is 5 mm. Scattered simple cysts seen in both kidneys ranging up to 3 cm mid right kidney. A 20 mm well-circumscribed soft tissue nodule left adrenal gland represents a benign adenoma. It is unchanged from a 03/18/2019 are MRI. The right adrenal gland and spleen are normal. The aorta is normal diameter however, there is very heavy calcific plaque in the infrarenal segment. There is also heavy calcific plaque in the common iliac arteries resulting in at least 50% stenosis. 50% or greater stenosis of the celiac, SMA and left renal artery origins also present Pelvic images show hysterectomy and oophorectomy changes. Urinary bladder shows mild cystocele. Moderate gas and fluid are seen in the retroperitoneal tissues surrounding the descending duodenum. The volume of gas has decreased slightly from the comparison exam three days ago. Unfortunately, the volume fluid in the right retroperitoneal has increased moderately Descension of fluid into the paracolic gutter and pericecal region. The remainder of the small bowel normal. Sigmoid diverticulosis appreciated but the remaining colon is normal. The appendix is surgically absent. Bone windows show severe complex scoliotic curve with chronic lateral compression fractures of L2-L3 and L4. IMPRESSION: 1. Moderate retroperitoneal fluid and gas surrounding the descending duodenum with downward extension into the right retroperitoneal soft tissues to the pericolonic region. The volume of gas has decreased but the volume of fluid is increased. In addition, there is now a moderate free intraperitoneal fluid in the pouch of Jeronimo. Suspect perforation of descending duodenum. 2. The appendix is surgically absent. 3. Sigmoid diverticulosis - no evidence of diverticulitis. 4. Heavy atherosclerotic plaque in the abdominal aorta and branches. There are likely hemodynamically significant stenosis in both common iliac, external iliac arteries and the celiac, SMA and left renal artery origins. Interpreted and Authenticated by: Idris Ace 01/12/20
[2020-01-12] MEDS ORDERED: 0.9 % SODIUM CHLORIDE 10 ML SYRINGE IV PRN (12:31)
[2020-01-12] MEDS ORDERED: TPN PER PHARMACY IV SCH (12:45)
--- NOTE | 2020-01-12 12:50 | General Surgery Progress Note ---
Subjective Patient reports: feels better, pain is less, flatus, no bowel movement, afebrile Narrative: Note initiated : 01/12/20 at 12:50 pm Service Date, if different from initiated Date: [] Patient: Rema Benitez 69 y/o F admitted on 01/09/20 for Perforated duodenum. Chief Complaint: [patient is stable. She states that she has less pain. She denies nausea and she is afebrile. White blood count 11.1, hemoglobin 8.3, hematocrit 26.5, potassium 3.1, BUN 15, creatinine 0.7. CT shows a decrease in free air in the second portion of the duodenum however there is increase in the volume of fluid and there is also fluid in the pouch of Jeronimo. Since her clinical picture is improving she is advised that we will continue her nothing by mouth and start TPN via PICC line and will repeat evaluation in 1 week.] Objective Temp Pulse Resp BP Pulse Ox 98.4 F 69 16 166/78 98 01/12/20 12:00 01/12/20 12:00 01/12/20 12:00 01/12/20 12:00 01/12/20 12:00 - Additional Data Intake & Output - Last 24 hours: Intake & Output 01/10/20 01/11/20 01/12/20 01/13/20 05:59 05:59 05:59 05:59 Intake Total 1100 3175 2150 1000 Output Total 925 2000 3200 1000 Balance 175 1175 -1050 0 Weight 130 lb 131 lb 8 oz 120 lb 8 oz - General physical appearance well developed, well nourished, no distress - Eyes PERRL, normal ocular movement - ENT normal pinna, normal nares, normal mucosa, no hearing loss, no congestion - Neck no masses, no bruits, trachea midline, no lymphadenopathy, no venous distension - Respiratory normal expansion, normal respiratory effort, clear to auscultation - Cardiovascular Cardiovascular exam: Present: normal rate and rhythm, RRR, +S1, +S2. Absent: JVD, tachycardia - Abdomen tender (epigastric right upper quadrant and right lower quadrant tenderness are significantly improved from yesterday in spite of the CT findings), bowel sounds (present), surgical scars (none), masses (none) - Integumentary no rash, no growths, no abnormal pigmentation - Neurologic normal coordination, normal sensation - Musculoskeletal normal gait, normal posture - Psychiatric oriented to time, oriented to person, oriented to place, speech is normal, memory intact - Labs 01/12/20 05:00 01/12/20 05:00 Diabetes panel 01/12/20 Range/Units 05:00 Sodium 144 (133-145) mmol/L Potassium 3.1 L (3.3-5.1) mmol/L Chloride 109 H (96-108) mmol/L Carbon Dioxide 18 L (22-30) mmol/L BUN 15 (8-23) mg/dl Creatinine 0.7 (0.6-1.1) mg/dl Glucose 52 L (70-105) mg/dL Calcium 8.4 L (8.6-10.4) mg/dl AST 12 (0-37) U/l ALT 13 (0-40) U/l Alkaline Phosphatase 71 (39-117) U/L Total Protein 5.8 L (5.9-8.4) gm/dL Albumin 3.0 L (3.2-5.2) gm/dL Triglycerides 99 (<150) mg/dl Calcium panel 01/12/20 Range/Units 05:00 Calcium 8.4 L (8.6-10.4) mg/dl Phosphorus 2.7 (2.7-4.5) mg/dL Albumin 3.0 L (3.2-5.2) gm/dL Pituitary panel 01/12/20 Range/Units 05:00 Sodium 144 (133-145) mmol/L Potassium 3.1 L (3.3-5.1) mmol/L Chloride 109 H (96-108) mmol/L Carbon Dioxide 18 L (22-30) mmol/L BUN 15 (8-23) mg/dl Creatinine 0.7 (0.6-1.1) mg/dl Glucose 52 L (70-105) mg/dL Calcium 8.4 L (8.6-10.4) mg/dl Adrenal panel 01/12/20 Range/Units 05:00 Sodium 144 (133-145) mmol/L Potassium 3.1 L (3.3-5.1) mmol/L Chloride 109 H (96-108) mmol/L Carbon Dioxide 18 L (22-30) mmol/L BUN 15 (8-23) mg/dl Creatinine 0.7 (0.6-1.1) mg/dl Glucose 52 L (70-105) mg/dL Calcium 8.4 L (8.6-10.4) mg/dl Total Bilirubin 0.4 (0.0-1.0) mg/dL AST 12 (0-37) U/l ALT 13 (0-40) U/l Alkaline Phosphatase 71 (39-117) U/L Total Protein 5.8 L (5.9-8.4) gm/dL Albumin 3.0 L (3.2-5.2) gm/dL Assessment and Plan (1) Duodenal perforation Status: Acute Assessment and plan: Patient is clinically stable and is responding to therapy. PICC line for central venous access Start TPN today if possible Continue nasogastric decompression and continue antibiotics Current Visit: Yes (2) Angiodysplasia of duodenum Status: Acute Current Visit: No (3) CAD (coronary artery disease) Status: Chronic Current Visit: No (4) CKD (chronic kidney disease) Status: Chronic Current Visit: No - Time Spent With Patient Total time spent is greater than 50% in coordination of care (as documented) at patient's floor/unit and/or counseling patient:
[2020-01-12] MEDS ORDERED: BENZOCAINE 1 SPRAY BOTTLE TOPICAL ONE (12:55)
[2020-01-12] MEDS ORDERED: POTASSIUM CHLORIDE IV SCH (14:00)
[2020-01-12] MEDS ORDERED: [UNRECOGNIZED DRUG - OTHER] IV SCH (14:00)
[2020-01-12] MEDS ORDERED: MAGNESIUM SULFATE IV SCH (14:00)
[2020-01-12] MEDS ORDERED: CALCIUM GLUCONATE IV SCH (14:00)
--- NOTE | 2020-01-12 18:54 | XRay Report ---
CLINICAL INFORMATION: PICC PLACEMENT COMPARISON: 01/10/2020 FINDINGS: PICC line tip overlies the SVC right atrial junction. NG tube extends off the edge of the film at least the gastric body. Heart size, mediastinum and pulmonary vessels are normal. There is minor bibasilar atelectasis. No effusion. IMPRESSION: PICC line in satisfactory position. Minor bibasilar atelectasis Interpreted and Authenticated by: Idris Ace 01/12/20
--- NOTE | 2020-01-12 19:17 | XRay Report ---
CLINICAL INFORMATION: ng tube repositioned, had been pulled loose COMPARISON: None. FINDINGS: NG tube is coiled in the gastric fundus. Stool gas pattern is unremarkable. Known right retroperitoneal gas on abdominal CT difficult to appreciate on this plain film. No free air IMPRESSION: NG tube in the gastric fundus. Consider advancing the tube 8 cm Interpreted and Authenticated by: Idris Ace 01/12/20
[2020-01-13] MEDS: 0.9 % SODIUM CHLORIDE 1,000 ML IV SCH ×4 (02:03→22:15)
[2020-01-13] MEDS: 0.9 % SODIUM CHLORIDE 10 ML SYRINGE IV SCH ×5 (05:12→20:16)
[2020-01-13 06:07] LABS: Basophils # (Auto) 0.03 K/mcL (0.00-0.30); Basophils % (Auto) 0.3 % (0.0-2.0); Eosinophils # (Auto) 0.17 K/mcL (0.00-0.70); Eosinophils % (Auto) 1.9 % (0.0-7.0); Granulocytes % (Auto) 76.5 % (38.0-78.0); Hematocrit 24.7 % (34.1-44.9); Hemoglobin 7.8 g/dL (11.2-15.7); Lymphocytes # (Auto) 1.02 K/mcL (1.50-4.80); Lymphocytes % (Auto) 11.6 % (15.5-49.0); Mean Cell Volume 88.2 fL (80.0-100.0); Mean Corpuscular HGB Conc 31.6 g/dL (31.0-36.0); Mean Platelet Volume 8.8 fL (7.4-10.4); Monocytes # (Auto) 0.85 K/mcL (0.10-0.90); Monocytes % (Auto) 9.7 % (1.0-12.0); Platelet Count 217 K/mcL (140-440); Red Cell Distribution Width 14.1 % (11.5-14.5); WBC 8.8 K/mcL (4.50-11.00)
[2020-01-13 06:29] LABS: ALT/SGPT 12 U/l (0-40); AST/SGOT 12 U/l (0-37); Albumin 3.1 gm/dL (3.2-5.2); Albumin/Globulin Ratio 1.2 (1.0-2.3); Alkaline Phosphatase 67 U/L (39-117); Bilirubin,Direct < 0.2 mg/dL (0.0-0.3); Bilirubin,Total 0.3 mg/dL (0.0-1.0); Blood Urea Nitrogen 12 mg/dl (8-23); Calcium 8.4 mg/dl (8.6-10.4); Carbon Dioxide 20 mmol/L (22-30); Chloride 108 mmol/L (96-108); Globulin 2.5 gm/dL (2.2-3.7); Glomerular Filtration Rate 92; Glucose 106 mg/dL (70-105); Lactate Dehydrogenase 131 U/L (94-250); Phosphorous 2.4 mg/dL (2.7-4.5); Triglycerides 119 mg/dl (<150); Uric Acid 5.6 mg/dL (2.5-8.0)
[2020-01-13] MEDS: PANTOPRAZOLE 40 MG VIAL IV SCH ×2 (07:15→17:00)
[2020-01-13] MEDS ORDERED: POTASSIUM CHLORIDE 40 MEQ in DEXTROSE 5% IN WATER 500 ML IV ONE (07:42)
[2020-01-13] MEDS: CLOPIDOGREL 75 MG TABLET PO SCH (09:40)
[2020-01-13] MEDS: CARVEDILOL 12.5 MG TABLET PO SCH ×2 (09:40→17:00)
[2020-01-13] MEDS: CEFEPIME 2 GM VIAL IV SCH ×2 (10:21→20:16)
--- NOTE | 2020-01-13 12:39 | General Surgery Progress Note ---
Subjective Patient reports: feels better, pain is less, flatus, bowel movement (Andie is 20 and I will await all ofby), afebrile Narrative: Note initiated : 01/13/20 at 12:36 pm Service Date, if different from initiated Date: [] Patient: Rema Benitez 69 y/o F admitted on 01/09/20 for Perforated duodenum. Chief Complaint: [patient is improved. She has less pain. She denies nausea. She had regular bowel movement without melena. White blood count 8.8, hemoglobin 7.8, hematocrit 24.7, potassium 2.8, BUN 12, creatinine 0.6, phosphorus 2.4.] Objective Temp Pulse Resp BP Pulse Ox 97.7 F 61 20 163/59 100 01/13/20 12:00 01/13/20 12:00 01/13/20 12:00 01/13/20 12:00 01/13/20 12:00 - Additional Data Intake & Output - Last 24 hours: Intake & Output 01/11/20 01/12/20 01/13/20 01/14/20 05:59 05:59 05:59 05:59 Intake Total 3175 2150 2000 1000 Output Total 1999 3200 2600 365 Balance 1175 -1050 -600 635 Weight 131 lb 8 oz 120 lb 8 oz 125 lb - General physical appearance well developed, well nourished, no distress - Eyes PERRL, normal ocular movement - ENT normal pinna, normal nares, normal mucosa, no hearing loss, no congestion - Neck no masses, no bruits, trachea midline, no lymphadenopathy, no venous distension - Respiratory normal expansion, normal respiratory effort, clear to auscultation - Cardiovascular Cardiovascular exam: Present: normal rate and rhythm, RRR, +S1, +S2. Absent: JVD, tachycardia - Abdomen soft (by mouth), non tender, bowel sounds (present), surgical scars (none), masses (none) - Integumentary no rash, no growths, no abnormal pigmentation - Neurologic normal coordination, normal sensation - Musculoskeletal normal gait, normal posture - Psychiatric oriented to time, oriented to person, oriented to place, speech is normal, memory intact - Labs 01/13/20 05:22 01/13/20 05:21 Diabetes panel 01/13/20 Range/Units 05:21 Sodium 141 (133-145) mmol/L Potassium 2.8 L* (3.3-5.1) mmol/L Chloride 108 (96-108) mmol/L Carbon Dioxide 20 L (22-30) mmol/L BUN 12 (8-23) mg/dl Creatinine 0.6 (0.6-1.1) mg/dl Glucose 106 H (70-105) mg/dL Calcium 8.4 L (8.6-10.4) mg/dl AST 12 (0-37) U/l ALT 12 (0-40) U/l Alkaline Phosphatase 67 (39-117) U/L Total Protein 5.6 L (5.9-8.4) gm/dL Albumin 3.1 L (3.2-5.2) gm/dL Triglycerides 119 (<150) mg/dl Calcium panel 01/13/20 Range/Units 05:21 Calcium 8.4 L (8.6-10.4) mg/dl Phosphorus 2.4 L (2.7-4.5) mg/dL Albumin 3.1 L (3.2-5.2) gm/dL Pituitary panel 01/13/20 Range/Units 05:21 Sodium 141 (133-145) mmol/L Potassium 2.8 L* (3.3-5.1) mmol/L Chloride 108 (96-108) mmol/L Carbon Dioxide 20 L (22-30) mmol/L BUN 12 (8-23) mg/dl Creatinine 0.6 (0.6-1.1) mg/dl Glucose 106 H (70-105) mg/dL Calcium 8.4 L (8.6-10.4) mg/dl Adrenal panel 01/13/20 Range/Units 05:21 Sodium 141 (133-145) mmol/L Potassium 2.8 L* (3.3-5.1) mmol/L Chloride 108 (96-108) mmol/L Carbon Dioxide 20 L (22-30) mmol/L BUN 12 (8-23) mg/dl Creatinine 0.6 (0.6-1.1) mg/dl Glucose 106 H (70-105) mg/dL Calcium 8.4 L (8.6-10.4) mg/dl Total Bilirubin 0.3 (0.0-1.0) mg/dL AST 12 (0-37) U/l ALT 12 (0-40) U/l Alkaline Phosphatase 67 (39-117) U/L Total Protein 5.6 L (5.9-8.4) gm/dL Albumin 3.1 L (3.2-5.2) gm/dL Assessment and Plan (1) Duodenal perforation Status: Acute Assessment and plan: Patient is clinically stable and is responding to therapy. Continue nasogastric decompression and continue antibiotics Follow-up CT comparison on of this week Current Visit: Yes (2) Angiodysplasia of duodenum Status: Acute Current Visit: No (3) CAD (coronary artery disease) Status: Chronic Current Visit: No (4) CKD (chronic kidney disease) Status: Chronic Current Visit: No - Time Spent With Patient Total time spent is greater than 50% in coordination of care (as documented) at patient's floor/unit and/or counseling patient:
[2020-01-13] MEDS ORDERED: POTASSIUM CHLORIDE IV SCH (14:00)
[2020-01-13] MEDS ORDERED: CALCIUM GLUCONATE IV SCH (14:00)
[2020-01-13] MEDS ORDERED: [UNRECOGNIZED DRUG - OTHER] IV SCH (14:00)
[2020-01-13] MEDS ORDERED: MAGNESIUM SULFATE IV SCH (14:00)
[2020-01-14] MEDS: 0.9 % SODIUM CHLORIDE 1,000 ML IV SCH ×3 (01:31→15:24)
[2020-01-14] MEDS: 0.9 % SODIUM CHLORIDE 10 ML SYRINGE IV SCH ×5 (05:20→21:07)
[2020-01-14 06:17] LABS: Basophils # (Auto) 0.03 K/mcL (0.00-0.30); Basophils % (Auto) 0.4 % (0.0-2.0); Eosinophils # (Auto) 0.13 K/mcL (0.00-0.70); Eosinophils % (Auto) 1.7 % (0.0-7.0); Granulocytes % (Auto) 72.2 % (38.0-78.0); Hematocrit 23.2 % (34.1-44.9); Hemoglobin 7.3 g/dL (11.2-15.7); Lymphocytes # (Auto) 1.08 K/mcL (1.50-4.80); Lymphocytes % (Auto) 14.1 % (15.5-49.0); Mean Cell Volume 88.2 fL (80.0-100.0); Mean Corpuscular HGB Conc 31.5 g/dL (31.0-36.0); Monocytes # (Auto) 0.89 K/mcL (0.10-0.90); Monocytes % (Auto) 11.6 % (1.0-12.0); Platelet Count 207 K/mcL (140-440); RBC 2.63 M/mcL (3.59-5.38); Red Cell Distribution Width 14.3 % (11.5-14.5); WBC 7.7 K/mcL (4.50-11.00)
[2020-01-14] MEDS: PANTOPRAZOLE 40 MG VIAL IV SCH ×2 (06:30→16:13)
[2020-01-14 06:55] LABS: ALT/SGPT 11 U/l (0-40); AST/SGOT 10 U/l (0-37); Albumin 2.7 gm/dL (3.2-5.2); Albumin/Globulin Ratio 1.1 (1.0-2.3); Alkaline Phosphatase 61 U/L (39-117); Bilirubin,Direct < 0.2 mg/dL (0.0-0.3); Bilirubin,Total 0.2 mg/dL (0.0-1.0); Blood Urea Nitrogen 9 mg/dl (8-23); Calcium 7.9 mg/dl (8.6-10.4); Carbon Dioxide 20 mmol/L (22-30); Chloride 113 mmol/L (96-108); Globulin 2.5 gm/dL (2.2-3.7); Glomerular Filtration Rate 92; Glucose 116 mg/dL (70-105); Lactate Dehydrogenase 128 U/L (94-250); Phosphorous 2.6 mg/dL (2.7-4.5); Triglycerides 118 mg/dl (<150); Uric Acid 3.6 mg/dL (2.5-8.0)
[2020-01-14] MEDS: CARVEDILOL 12.5 MG TABLET PO SCH ×2 (08:08→16:55)
[2020-01-14] MEDS: CEFEPIME 2 GM VIAL IV SCH ×2 (08:08→21:07)
[2020-01-14] MEDS: CLOPIDOGREL 75 MG TABLET PO SCH (08:08)
--- NOTE | 2020-01-14 13:18 | General Surgery Progress Note ---
Subjective Patient reports: feels better, pain is less, flatus, bowel movement, afebrile Narrative: Note initiated : 01/14/20 at 1:15 pm Service Date, if different from initiated Date: [] Patient: Rema Benitez 69 y/o F admitted on 01/09/20 for Perforated duodenum. Chief Complaint: [patient continues to improve. Her pain has resolved. She denies nausea. She remains afebrile. White blood count 7.7, hemoglobin 7.3, hematocrit 23.2, potassium 3.2, magnesium 1.4, phosphorus 2.6.] Objective Temp Pulse Resp BP Pulse Ox 98.9 F 68 16 158/67 98 01/14/20 12:00 01/14/20 12:00 01/14/20 12:00 01/14/20 12:00 01/14/20 12:00 - Additional Data Intake & Output - Last 24 hours: Intake & Output 01/12/20 01/13/20 01/14/20 01/15/20 05:59 05:59 05:59 05:59 Intake Total 2150 2000 2520 1000 Output Total 3200 2600 2715 550 Balance -1050 -600 -195 450 Weight 120 lb 8 oz 125 lb 124 lb 5 oz 124 lb 5 oz - General physical appearance well developed, well nourished, no distress, no pain - Eyes PERRL, normal ocular movement - ENT normal pinna, normal nares, normal mucosa, no hearing loss, no congestion - Neck no masses, no bruits, trachea midline, no lymphadenopathy, no venous distension - Respiratory normal expansion, normal respiratory effort, clear to auscultation - Cardiovascular Cardiovascular exam: Present: normal rate and rhythm, RRR, +S1, +S2. Absent: JVD, tachycardia - Abdomen non tender (abdomen is totally benign without epigastric right upper quadrant or right lower quadrant tenderness), bowel sounds (present), surgical scars (none), masses (none) - Integumentary no rash, no growths, no abnormal pigmentation - Neurologic normal coordination, normal sensation - Musculoskeletal normal gait, normal posture - Psychiatric oriented to time, oriented to person, oriented to place, speech is normal, memory intact - Labs 01/14/20 05:00 01/14/20 05:00 Diabetes panel 01/14/20 Range/Units 05:00 Sodium 143 (133-145) mmol/L Potassium 3.2 L (3.3-5.1) mmol/L Chloride 113 H (96-108) mmol/L Carbon Dioxide 20 L (22-30) mmol/L BUN 9 (8-23) mg/dl Creatinine 0.6 (0.6-1.1) mg/dl Glucose 116 H (70-105) mg/dL Calcium 7.9 L (8.6-10.4) mg/dl AST 10 (0-37) U/l ALT 11 (0-40) U/l Alkaline Phosphatase 61 (39-117) U/L Total Protein 5.2 L (5.9-8.4) gm/dL Albumin 2.7 L (3.2-5.2) gm/dL Triglycerides 118 (<150) mg/dl Calcium panel 01/14/20 Range/Units 05:00 Calcium 7.9 L (8.6-10.4) mg/dl Phosphorus 2.6 L (2.7-4.5) mg/dL Albumin 2.7 L (3.2-5.2) gm/dL Pituitary panel 01/14/20 Range/Units 05:00 Sodium 143 (133-145) mmol/L Potassium 3.2 L (3.3-5.1) mmol/L Chloride 113 H (96-108) mmol/L Carbon Dioxide 20 L (22-30) mmol/L BUN 9 (8-23) mg/dl Creatinine 0.6 (0.6-1.1) mg/dl Glucose 116 H (70-105) mg/dL Calcium 7.9 L (8.6-10.4) mg/dl Adrenal panel 01/14/20 Range/Units 05:00 Sodium 143 (133-145) mmol/L Potassium 3.2 L (3.3-5.1) mmol/L Chloride 113 H (96-108) mmol/L Carbon Dioxide 20 L (22-30) mmol/L BUN 9 (8-23) mg/dl Creatinine 0.6 (0.6-1.1) mg/dl Glucose 116 H (70-105) mg/dL Calcium 7.9 L (8.6-10.4) mg/dl Total Bilirubin 0.2 (0.0-1.0) mg/dL AST 10 (0-37) U/l ALT 11 (0-40) U/l Alkaline Phosphatase 61 (39-117) U/L Total Protein 5.2 L (5.9-8.4) gm/dL Albumin 2.7 L (3.2-5.2) gm/dL Assessment and Plan (1) Duodenal perforation Status: Acute Assessment and plan: Patient is clinically stable and is responding to therapy. Continue nasogastric decompression and continue antibiotics Follow-up CT comparison on of this week Current Visit: Yes (2) Angiodysplasia of duodenum Status: Acute Current Visit: No (3) CAD (coronary artery disease) Status: Chronic Current Visit: No (4) CKD (chronic kidney disease) Status: Chronic Current Visit: No - Time Spent With Patient Total time spent is greater than 50% in coordination of care (as documented) at patient's floor/unit and/or counseling patient:
[2020-01-14] MEDS ORDERED: CALCIUM GLUCONATE IV SCH ×2 (14:00→17:00)
[2020-01-14] MEDS ORDERED: POTASSIUM CHLORIDE IV SCH ×2 (14:00→17:00)
[2020-01-14] MEDS ORDERED: MAGNESIUM SULFATE IV SCH ×2 (14:00→17:00)
[2020-01-14] MEDS ORDERED: [UNRECOGNIZED DRUG - OTHER] IV SCH ×2 (14:00→17:00)
[2020-01-14] MEDS ORDERED: POTASSIUM PHOSPHATE 40 MEQ in DEXTROSE 5% IN WATER 500 ML IV ONE (14:38)
[2020-01-14] MEDS ORDERED: MAGNESIUM SULFATE 32.48 MEQ in DEXTROSE 5% IN WATER 50 ML IV ONE (14:38)
[2020-01-14] MEDS ORDERED: 0.9 % SODIUM CHLORIDE 250 ML IV SCH (15:00)
[2020-01-14] MEDS ORDERED: MAGNESIUM SULFATE 4 GM/100 ML BAG IV ONE (15:00)
[2020-01-14] MEDS: INSULIN LISPRO 1 UNIT/0.01 ML UNIT SQ SCH ×2 (17:02→23:43)
[2020-01-14] MEDS: ACETAMINOPHEN 1,000 MG/100 ML BOTTLE IV PRN (20:37)
[2020-01-15] MEDS: 0.9 % SODIUM CHLORIDE 1,000 ML IV SCH ×4 (01:06→14:15)
[2020-01-15] MEDS: 0.9 % SODIUM CHLORIDE 10 ML SYRINGE IV SCH ×5 (04:59→21:24)
[2020-01-15] MEDS: INSULIN LISPRO 1 UNIT/0.01 ML UNIT SQ SCH ×4 (04:59→23:57)
[2020-01-15 06:16] LABS: Basophils # (Auto) 0.02 K/mcL (0.00-0.30); Basophils % (Auto) 0.2 % (0.0-2.0); Eosinophils # (Auto) 0.18 K/mcL (0.00-0.70); Eosinophils % (Auto) 2.1 % (0.0-7.0); Granulocytes % (Auto) 73.1 % (38.0-78.0); Hematocrit 32.2 % (34.1-44.9); Hemoglobin 10.5 g/dL (11.2-15.7); Lymphocytes # (Auto) 1.06 K/mcL (1.50-4.80); Lymphocytes % (Auto) 12.4 % (15.5-49.0); Mean Cell Volume 85.9 fL (80.0-100.0); Mean Corpuscular HGB Conc 32.6 g/dL (31.0-36.0); Mean Platelet Volume 9.1 fL (7.4-10.4); Monocytes # (Auto) 1.04 K/mcL (0.10-0.90); Monocytes % (Auto) 12.2 % (1.0-12.0); Platelet Count 203 K/mcL (140-440); RBC 3.75 M/mcL (3.59-5.38); Red Cell Distribution Width 14.7 % (11.5-14.5); WBC 8.5 K/mcL (4.50-11.00)
[2020-01-15 06:43] LABS: ALT/SGPT 14 U/l (0-40); AST/SGOT 13 U/l (0-37); Alkaline Phosphatase 68 U/L (39-117); Bilirubin,Direct 0.2 mg/dL (0.0-0.3); Bilirubin,Total 0.8 mg/dL (0.0-1.0); Blood Urea Nitrogen 11 mg/dl (8-23); Calcium 8.5 mg/dl (8.6-10.4); Carbon Dioxide 20 mmol/L (22-30); Globulin 2.9 gm/dL (2.2-3.7); Glomerular Filtration Rate 98; Glucose 107 mg/dL (70-105); Lactate Dehydrogenase 164 U/L (94-250); Triglycerides 120 mg/dl (<150); Uric Acid 2.7 mg/dL (2.5-8.0)
[2020-01-15 06:44] LABS: Chloride 110 mmol/L (96-108); Phosphorous 3.7 mg/dL (2.7-4.5)
[2020-01-15] MEDS: PANTOPRAZOLE 40 MG VIAL IV SCH ×2 (07:30→16:29)
[2020-01-15] MEDS: CARVEDILOL 12.5 MG TABLET PO SCH ×2 (08:57→16:27)
[2020-01-15] MEDS: CLOPIDOGREL 75 MG TABLET PO SCH (08:57)
[2020-01-15] MEDS: CEFEPIME 2 GM VIAL IV SCH ×2 (08:59→21:23)
[2020-01-15] MEDS: [UNRECOGNIZED DRUG - OTHER] IV SCH (10:15)
[2020-01-15] MEDS: POTASSIUM CHLORIDE IV SCH (10:15)
[2020-01-15] MEDS: MAGNESIUM SULFATE IV SCH (10:15)
[2020-01-15] MEDS: CALCIUM GLUCONATE IV SCH (10:15)
--- NOTE | 2020-01-15 14:43 | General Surgery Progress Note ---
Subjective Patient reports: feels better, pain is less, flatus, bowel movement, afebrile Narrative: Note initiated : 01/15/20 at 2:40 pm Service Date, if different from initiated Date: [] Patient: Rema Benitez 69 y/o F admitted on 01/09/20 for Perforated duodenum. Chief Complaint: [patient is continuing to improve. She states that she is not having any abdominal pain. She denies nausea. She is having regular bowel movements without any blood or melena. Her appetite has improved. White blood count 6.5, hemoglobin 10.5, hematocrit 32.2, potassium 3.7, phosphorus 3.7, magnesium 2.2] Objective Temp Pulse Resp BP Pulse Ox 98 F 68 20 149/74 98 01/15/20 12:00 01/15/20 03:07 01/15/20 12:00 01/15/20 12:00 01/15/20 12:00 - Additional Data Intake & Output - Last 24 hours: Intake & Output 01/13/20 01/14/20 01/15/20 01/16/20 05:59 05:59 05:59 05:59 Intake Total 1999 2520 4494.0909 1000 Output Total 2600 2715 2825 1450 Balance -600 -195 1669.0909 -450 Weight 125 lb 124 lb 5 oz 123 lb 8 oz - General physical appearance well developed, well nourished, no distress - Eyes PERRL, normal ocular movement - ENT normal pinna, normal nares, normal mucosa, no hearing loss, no congestion - Neck no masses, no bruits, trachea midline, no lymphadenopathy, no venous distension - Respiratory normal expansion, normal respiratory effort, clear to auscultation - Cardiovascular Cardiovascular exam: Present: normal rate and rhythm, RRR, +S1, +S2. Absent: JVD, tachycardia - Abdomen non tender (no abdominal tenderness in epigastrium right upper quadrant or right lower quadrant), bowel sounds (present), surgical scars (none), masses (none) - Integumentary no rash, no growths, no abnormal pigmentation - Neurologic normal coordination, normal sensation - Musculoskeletal normal gait, normal posture - Psychiatric oriented to time, oriented to person, oriented to place, speech is normal, memory intact - Labs 01/15/20 05:20 01/15/20 05:20 Diabetes panel 01/15/20 Range/Units 05:20 Sodium 141 (133-145) mmol/L Potassium 3.7 (3.3-5.1) mmol/L Chloride 110 H (96-108) mmol/L Carbon Dioxide 20 L (22-30) mmol/L BUN 11 (8-23) mg/dl Creatinine 0.5 L (0.6-1.1) mg/dl Glucose 107 H (70-105) mg/dL Calcium 8.5 L (8.6-10.4) mg/dl AST 13 (0-37) U/l ALT 14 (0-40) U/l Alkaline Phosphatase 68 (39-117) U/L Total Protein 5.9 (5.9-8.4) gm/dL Albumin 3.0 L (3.2-5.2) gm/dL Triglycerides 120 (<150) mg/dl Calcium panel 01/15/20 Range/Units 05:20 Calcium 8.5 L (8.6-10.4) mg/dl Phosphorus 3.7 (2.7-4.5) mg/dL Albumin 3.0 L (3.2-5.2) gm/dL Pituitary panel 01/15/20 Range/Units 05:20 Sodium 141 (133-145) mmol/L Potassium 3.7 (3.3-5.1) mmol/L Chloride 110 H (96-108) mmol/L Carbon Dioxide 20 L (22-30) mmol/L BUN 11 (8-23) mg/dl Creatinine 0.5 L (0.6-1.1) mg/dl Glucose 107 H (70-105) mg/dL Calcium 8.5 L (8.6-10.4) mg/dl Adrenal panel 01/15/20 Range/Units 05:20 Sodium 141 (133-145) mmol/L Potassium 3.7 (3.3-5.1) mmol/L Chloride 110 H (96-108) mmol/L Carbon Dioxide 20 L (22-30) mmol/L BUN 11 (8-23) mg/dl Creatinine 0.5 L (0.6-1.1) mg/dl Glucose 107 H (70-105) mg/dL Calcium 8.5 L (8.6-10.4) mg/dl Total Bilirubin 0.8 (0.0-1.0) mg/dL AST 13 (0-37) U/l ALT 14 (0-40) U/l Alkaline Phosphatase 68 (39-117) U/L Total Protein 5.9 (5.9-8.4) gm/dL Albumin 3.0 L (3.2-5.2) gm/dL Assessment and Plan (1) Duodenal perforation Status: Acute Assessment and plan: Patient is clinically stable and is responding to therapy. Continue nasogastric decompression and continue antibiotics Follow-up CT comparison on of this week Current Visit: Yes (2) Angiodysplasia of duodenum Status: Acute Current Visit: No (3) CAD (coronary artery disease) Status: Chronic Current Visit: No (4) CKD (chronic kidney disease) Status: Chronic Current Visit: No - Time Spent With Patient Total time spent is greater than 50% in coordination of care (as documented) at patient's floor/unit and/or counseling patient:
[2020-01-15] MEDS ORDERED: FAT EMULSION 20% 250 ML IV SCH (16:00)
[2020-01-15] MEDS ORDERED: hydrALAZINE 20 MG/ML VIAL IV PRN (19:56)
--- NOTE | 2020-01-15 20:03 | Internal Medicine Consult Note ---
Medical - CN: HPI - Data of Consult Consult date: 01/15/20 Requesting physician: Barry Blakely Primary Care Provider: Leisa Auguste - Consult Narrative Reason for consult: chest pain History of present illness: Ms. Benitez is a 69 year old F with a history of high blood pressure and CAD status post stenting in October 2019 who was admitted to the hospital due to duodenal perforation. Medical consult was requested by Dr. Blakely due to chest pain. Encountered pt in her room. Patient told me that this afternoon patient had 1 episode of substernal chest pain, which was dull in nature and a 7 out of 10 in severity. The pain lasted about 5 minutes. Otherwise she was fine. She did not have shortness breath, nausea, or dizziness at that time. When I saw this patient, she was fine. No chest pain. Denied headache, dizziness, shortness breath, palpitation, abdominal pain, or dysuria. She had one stent placed in October 2019. CC: Anam Blakely MD Review of systems: Positive for chest pain. All other systems were reviewed and are negative Medical - CN: PMH Family history: reviewed and not pertinent (Parents had CAD) Smoking status: Former smoker Have you smoked in the last 12 months: No Drug use: none Alcohol use: none Medical - CN: Meds Home Medications Medication Instructions Recorded Confirmed Type multivitamin 1 tab PO QDAY 05/22/15 01/09/20 History aspirin 81 mg tablet,delayed 81 mg PO QDAY 12/24/15 01/09/20 History release omega-3 fatty acids 1,000 mg 4,000 mg PO QDAY cap 11/20/17 01/09/20 History capsule omega red 1 capsule PO QDAY 04/26/18 01/09/20 History cholecalciferol (vitamin D3) 25 1,000 unit PO QDAY 04/30/19 01/09/20 History mcg (1,000 unit) capsule coenzyme Q10 120 mg PO QDAY 07/19/19 01/09/20 History cyclobenzaprine 10 mg tablet 10 mg PO TID PRN #90 tab 09/03/19 01/09/20 Rx cranberry extract 300 mg tablet 300 mg PO QDAY 09/30/19 01/09/20 History atorvastatin 80 mg tablet 80 mg PO QHS 11/20/19 01/09/20 History carvedilol 25 mg tablet 25 mg PO BID 11/20/19 01/09/20 History ezetimibe 10 mg tablet 10 mg PO QDAY 11/20/19 01/09/20 History febuxostat 80 mg tablet 40 mg PO QDAY tab 11/25/19 01/09/20 History soy isofla-blk cohosh-mag bark 155 1 cap PO DAILY 11/25/19 01/09/20 History mg capsule vitamin B complex 1 cap PO QDAY 11/25/19 01/09/20 History acetaminophen 325 mg tablet 650 mg PO Q4H PRN 12/09/19 01/09/20 History Clopidogrel Bisulfate [Plavix] 75 mg PO DAILY 01/06/20 01/09/20 History Pantoprazole [Protonix] 40 mg PO ONCE 01/06/20 01/09/20 History Allergies Allergy/AdvReac Type Severity Reaction Status Date / Time clindamycin Allergy Mild red rash, Verified 01/13/20 10:08 itching Amoxicillin [From Augmentin] Allergy Unknown pt unsure Verified 01/09/20 11:53 clavulanic acid Allergy Unknown pt unsure Verified 01/09/20 11:53 [From Augmentin] Nsfwsrp-[id number]-Pqm Reductase Allergy Unknown Unknown Verified 01/09/20 11:53 Inhibitor fenofibrate AdvReac Mild headache, Verified 01/13/20 10:08 body ache Medical - CN: Exam - Constitutional Vitals: Temp Pulse Resp BP Pulse Ox 99 F 68 20 180/83 98 01/15/20 15:34 01/15/20 03:07 01/15/20 15:34 01/15/20 16:33 01/15/20 15:34 - Additional findings Additional findings: General - No acute distress Eyes - PERRLA, EOM intact ENT no rhinorrhea, no noticeable or palpable swelling, no redness or rash around throat or on face Neck supple, no JVD, no thyromegaly Respiratory: Lungs -clear, no wheezing or crackles. Cardiovascular - No tenderness, RRR no m/r/g, GI - Normal bowel sounds, no distended, soft. Extremeties - No edema, cyanosis or clubbing Hemo/lymphatic/immune no lymphadenopathy Neurological Alert and oriented x 3, no focal neurological deficits. Psychiatry flat affect Medical - CN: Result - Labs CBC & Chem 7: 01/15/20 05:20 01/15/20 05:20 Labs: Short CBC 01/15/20 Range/Units 05:20 WBC 8.5 (4.50-11.00) K/mcL Hgb 10.5 L (11.2-15.7) g/dL Hct 32.2 L (34.1-44.9) % Plt Count 203 (140-440) K/mcL BMP 01/15/20 05:20 Sodium 141 Potassium 3.7 Chloride 110 H Carbon Dioxide 20 L BUN 11 Creatinine 0.5 L Glucose 107 H Calcium 8.5 L Cardiac Enzymes 01/15/20 Range/Units 16:31 Troponin T < 0.01 (0-0.03) ng/ml Liver Function 01/15/20 Range/Units 05:20 Total Bilirubin 0.8 (0.0-1.0) mg/dL Direct Bilirubin 0.2 (0.0-0.3) mg/dL GGT 23 (5-36) U/L AST 13 (0-37) U/l ALT 14 (0-40) U/l Alkaline Phosphatase 68 (39-117) U/L Albumin 3.0 L (3.2-5.2) gm/dL Medical - CN: A/P - Narrative A/P Narrative: Assessment: 1. Chest pain R07.9 2. CAD, s/p stent x 1 placement I25.10 3. HTN 4. Duodenal perforation K 63.1 5. Angiodysplasia of duodenum K31.819 Plan: 1. Hx of CAD, one episode of chest pain. Troponin negative, trending EKG Aspirin, plavix and lipitor are on hold due to NPO. aspirin suppository Patient fully understood that no cage fighter and stress test are available in this hospital. She would like to stay in the hospital for medical treatment and have a stress test with PCP after discharge. Lipid panel and hemoglobin A1c in the morning 2. Blood pressure is not controlled Oral blood pressure medications are on hold due to n.p.o. Hydralazine IV as needed 3. Other medical issues Management by surgical team 4. DVT prophylaxis: By surgical team 5. CODE STATUS: Full
[2020-01-16] MEDS: POTASSIUM CHLORIDE IV SCH ×2 (04:52→20:36)
[2020-01-16] MEDS: CALCIUM GLUCONATE IV SCH ×2 (04:52→20:36)
[2020-01-16] MEDS: [UNRECOGNIZED DRUG - OTHER] IV SCH ×2 (04:52→20:36)
[2020-01-16] MEDS: MAGNESIUM SULFATE IV SCH ×2 (04:52→20:36)
[2020-01-16] MEDS: INSULIN LISPRO 1 UNIT/0.01 ML UNIT SQ SCH ×4 (04:54→23:39)
[2020-01-16 06:12] LABS: Basophils # (Auto) 0.03 K/mcL (0.00-0.30); Basophils % (Auto) 0.3 % (0.0-2.0); Eosinophils # (Auto) 0.23 K/mcL (0.00-0.70); Eosinophils % (Auto) 2.4 % (0.0-7.0); Granulocytes % (Auto) 76.3 % (38.0-78.0); Hematocrit 32.1 % (34.1-44.9); Hemoglobin 10.3 g/dL (11.2-15.7); Lymphocytes # (Auto) 0.98 K/mcL (1.50-4.80); Lymphocytes % (Auto) 10.3 % (15.5-49.0); Mean Cell Volume 87.7 fL (80.0-100.0); Mean Corpuscular HGB Conc 32.1 g/dL (31.0-36.0); Mean Platelet Volume 9.2 fL (7.4-10.4); Monocytes # (Auto) 1.01 K/mcL (0.10-0.90); Monocytes % (Auto) 10.7 % (1.0-12.0); Platelet Count 220 K/mcL (140-440); RBC 3.66 M/mcL (3.59-5.38); Red Cell Distribution Width 15.1 % (11.5-14.5); WBC 9.5 K/mcL (4.50-11.00)
[2020-01-16] MEDS ORDERED: IOPAMIDOL 100 ML BOTTLE IV ONE (06:27)
[2020-01-16 06:40] LABS: ALT/SGPT 15 U/l (0-40); AST/SGOT 13 U/l (0-37); Albumin 3.1 gm/dL (3.2-5.2); Albumin/Globulin Ratio 1.1 (1.0-2.3); Alkaline Phosphatase 69 U/L (39-117); Bilirubin,Direct < 0.2 mg/dL (0.0-0.3); Bilirubin,Total 0.4 mg/dL (0.0-1.0); Blood Urea Nitrogen 11 mg/dl (8-23); Calcium 8.5 mg/dl (8.6-10.4); Carbon Dioxide 20 mmol/L (22-30); Chloride 108 mmol/L (96-108); Globulin 2.7 gm/dL (2.2-3.7); Glomerular Filtration Rate 92; Glucose 84 mg/dL (70-105); HDL Cholesterol 30 mg/dl (>40); LDL Cholesterol,Calculated 37 mg/dl (SEE CHART); Lactate Dehydrogenase 166 U/L (94-250); Non-HDL Cholesterol 55 (LDL TARGET+30); Phosphorous 3.5 mg/dL (2.7-4.5); Triglycerides 94 mg/dl (<150); Uric Acid 2.1 mg/dL (2.5-8.0)
[2020-01-16 06:41] LABS: Estimated Average Glucose(eAG) 111 mg/dL; Hemoglobin A1C 5.5 % HGB (4.0-6.0)
[2020-01-16] MEDS: PANTOPRAZOLE 40 MG VIAL IV SCH ×2 (07:33→16:50)
[2020-01-16] MEDS: CARVEDILOL 12.5 MG TABLET PO SCH ×2 (08:09→16:50)
[2020-01-16] MEDS: CLOPIDOGREL 75 MG TABLET PO SCH (08:09)
[2020-01-16] MEDS: 0.9 % SODIUM CHLORIDE 10 ML SYRINGE IV SCH ×2 (08:13→20:35)
--- NOTE | 2020-01-16 08:47 | Cat Scan Report ---
History: Follow-up perforated duodenum TECHNIQUE: Following injection of intravenous contrast the patient was scanned from the diaphragm to the symphysis pubis. Sagittal and coronal reformats were created. The radiation exposure was limited using dose reduction technology. FINDINGS: There are small bilateral layering pleural effusions. The right-sided effusion is new in the left side has increased in volume since 01/12/20. There is a pleural-based 7 mm nodule in the posterior basal segment left lower lobe. This is unchanged The liver is normal in size. There are few scattered simple cysts. No solid mass is seen. There is moderate amount of fluid surrounding the gallbladder. Gallbladder wall is normal thickness and no gallstones. The bile ducts are nondilated. The spleen and pancreas are normal. There is an exophytic 2.1 x 2.2 cm mass in left adrenal gland. This appears to contain some lipid and has remained stable from the recent CT scans. The right adrenal is normal. There are several cysts in both kidneys. The largest extends exophytically from the lower pole the right kidney and measures 3.4 x 3.5 cm. There is no kidney stone or hydronephrosis. There is a collection of fluid with bubbles of air located posterior to the third portion of the duodenum. This is becoming encapsulated now has a thin wall surrounding it. It is more sharply circumscribed today than it was on 01/12/20 and has diminished in size. It now measures 2.1 x 3.3 x 3.8 cm and previously measured 1.9 x 3.6 x 4.3 cm. There are inflammatory changes around this. There is a band of fluid extending across the right anterior pararenal space into the right paracolic gutter. There is also small amount of free fluid deep in the pelvis. The volume of fluid has remained stable. No free intraperitoneal air is present. There is no evidence of bowel obstruction or ileus. Multiple diverticula are present in the sigmoid colon. There is no acute diverticulitis. The uterus, ovaries and appendix have been removed. There is a cystocele in the bladder. Severe atherosclerotic disease is present throughout the abdomen and pelvis. There is also a severe levoscoliotic curvature in the lumbar spine with associated disc degeneration and arthritis. IMPRESSION: Perforated duodenum with a walled off fluid collection located posterior to the third portion. The collection is becoming encapsulated and beginning to shrink Inflammation with free fluid in the right anterior pararenal space, right paracolic gutter, david hepatis and cul-de-sac Interpreted and Authenticated by: Samir Huston 01/16/20
[2020-01-16] MEDS: CEFEPIME 2 GM VIAL IV SCH ×2 (09:33→20:36)
[2020-01-16] MEDS: 0.9 % SODIUM CHLORIDE 1,000 ML IV SCH (09:37)
--- NOTE | 2020-01-16 15:26 | General Surgery Progress Note ---
Subjective Patient reports: feels better, pain is less, flatus, bowel movement, afebrile Narrative: Note initiated : 01/16/20 at 3:24 pm Service Date, if different from initiated Date: [] Patient: Rema Benitez 69 y/o F admitted on 01/09/20 for Perforated duodenum. Chief Complaint: [patient continues to improve. She did not have any discomfort last evening. She did not have return of her chest pain. Her troponin was negative 2. She was seen by hospitalist agrees that she does not have an acute coronary event at this time. White blood count 9.5, hemoglobin 10.3, hematocrit 32.1, BUN 11, creatinine 0.6, troponin less than 0.1.] CT this morning shows a localized area of fluid in the retroperitoneum beneath the duodenum which is actually smaller than previously. She also has a small amount of fluid that is joshua into the right lower quadrant. Radiographically the radiologist feels that this is a controlled process and is improved from 3 days previously. Objective Temp Pulse Resp BP Pulse Ox 97.9 F 59 L 18 147/71 97 01/16/20 12:00 01/16/20 12:00 01/16/20 12:00 01/16/20 12:00 01/16/20 12:00 - Additional Data Intake & Output - Last 24 hours: Intake & Output 01/14/20 01/15/20 01/16/20 01/17/20 05:59 05:59 05:59 05:59 Intake Total 2520 4494.0909 2306.1162 Output Total 2715 2825 4025 1250 Balance -195 1669.0909 -1718.8838 -1250 Weight 124 lb 5 oz 123 lb 8 oz 131 lb 9.6 oz 131 lb 9.6 oz - General physical appearance well developed, well nourished, no distress - Eyes PERRL, normal ocular movement - ENT normal pinna, normal nares, normal mucosa, no hearing loss, no congestion - Neck no masses, no bruits, trachea midline, no lymphadenopathy, no venous distension - Respiratory normal expansion, normal respiratory effort, clear to auscultation - Cardiovascular Cardiovascular exam: Present: normal rate and rhythm, RRR, +S1, +S2. Absent: JVD, tachycardia - Abdomen non tender, bowel sounds (present), surgical scars (none), masses (none) - Integumentary no rash, no growths, no abnormal pigmentation - Neurologic normal coordination, normal sensation - Musculoskeletal normal gait, normal posture - Psychiatric oriented to time, oriented to person, oriented to place, speech is normal, memory intact - Labs 01/16/20 05:00 01/16/20 05:00 Diabetes panel 01/16/20 Range/Units 05:00 Sodium 140 (133-145) mmol/L Potassium 4.1 (3.3-5.1) mmol/L Chloride 108 (96-108) mmol/L Carbon Dioxide 20 L (22-30) mmol/L BUN 11 (8-23) mg/dl Creatinine 0.6 (0.6-1.1) mg/dl Glucose 84 (70-105) mg/dL Hemoglobin A1c 5.5 (4.0-6.0) % HGB Calcium 8.5 L (8.6-10.4) mg/dl AST 13 (0-37) U/l ALT 15 (0-40) U/l Alkaline Phosphatase 69 (39-117) U/L Total Protein 5.8 L (5.9-8.4) gm/dL Albumin 3.1 L (3.2-5.2) gm/dL Triglycerides 94 (<150) mg/dl HDL Cholesterol 30 L (>40) mg/dl Calcium panel 01/16/20 Range/Units 05:00 Calcium 8.5 L (8.6-10.4) mg/dl Phosphorus 3.5 (2.7-4.5) mg/dL Albumin 3.1 L (3.2-5.2) gm/dL Pituitary panel 01/16/20 Range/Units 05:00 Sodium 140 (133-145) mmol/L Potassium 4.1 (3.3-5.1) mmol/L Chloride 108 (96-108) mmol/L Carbon Dioxide 20 L (22-30) mmol/L BUN 11 (8-23) mg/dl Creatinine 0.6 (0.6-1.1) mg/dl Glucose 84 (70-105) mg/dL Calcium 8.5 L (8.6-10.4) mg/dl Adrenal panel 01/16/20 Range/Units 05:00 Sodium 140 (133-145) mmol/L Potassium 4.1 (3.3-5.1) mmol/L Chloride 108 (96-108) mmol/L Carbon Dioxide 20 L (22-30) mmol/L BUN 11 (8-23) mg/dl Creatinine 0.6 (0.6-1.1) mg/dl Glucose 84 (70-105) mg/dL Calcium 8.5 L (8.6-10.4) mg/dl Total Bilirubin 0.4 (0.0-1.0) mg/dL AST 13 (0-37) U/l ALT 15 (0-40) U/l Alkaline Phosphatase 69 (39-117) U/L Total Protein 5.8 L (5.9-8.4) gm/dL Albumin 3.1 L (3.2-5.2) gm/dL Assessment and Plan (1) Duodenal perforation Status: Acute Assessment and plan: Patient is clinically stable and is responding to therapy Diet will be advanced Check sedimentation rate Saline lock IV Current Visit: Yes (2) Angiodysplasia of duodenum Status: Acute Current Visit: No (3) CAD (coronary artery disease) Status: Chronic Current Visit: No (4) CKD (chronic kidney disease) Status: Chronic Current Visit: No (5) Chest pain in adult Status: Acute Assessment and plan: Troponin are negative 2 EKG shows some suggestion of acute change. Not severe and the patient remains asymptomatic Current Visit: Yes - Time Spent With Patient Total time spent is greater than 50% in coordination of care (as documented) at patient's floor/unit and/or counseling patient:
--- NOTE | 2020-01-16 15:52 | Internal Med Progress Note ---
Medical - PN: Subj Patient information: Note initiated : 01/16/20 at 3:42 pm Service Date, if different from initiated Date: [] Patient: Rema Benitez 69 y/o F admitted on 01/09/20 for Perforated duodenum. Chief Complaint: [] Interval history: Ms. Benitez is a 69 year old F with a history of high blood pressure and CAD status post stenting in October 2019 who was admitted to the hospital due to duodenal perforation. Medical consult was requested by Dr. Blakely due to chest pain. Encountered pt in her room. Patient told me that this afternoon patient had 1 episode of substernal chest pain, which was dull in nature and a 7 out of 10 in severity. The pain lasted about 5 minutes. Otherwise she was fine. She did not have shortness breath, nausea, or dizziness at that time. When I saw this patient, she was fine. No chest pain. Denied headache, dizziness, shortness breath, palpitation, abdominal pain, or dysuria. She had one stent placed in October 2019. 01/15 Patient feels fine today. No longer has chest pain. Denies headache, dizziness, shortness of breath, or palpitation. Vital signs are stable and acceptable Hemoglobin a1c 5.5, LDL 37 Troponin < 0.01 x 2. EKG Mild Q waves in the anteroseptal leads. Review of systems: Positive for chest pain. All other systems were reviewed and are negative - Constitutional Vitals: Vital Signs Temp Pulse Resp BP Pulse Ox 97.9 F 59 L 18 147/71 97 01/16/20 12:00 01/16/20 12:00 01/16/20 12:00 01/16/20 12:00 01/16/20 12:00 Period Temp Pulse Resp BP Sys/Bansal Pulse Ox Last 24 Hr 97.9 F-99.0 F 59-67 18-18 140-190/65-83 94-97 Intake and Output 01/16/20 01/16/20 01/16/20 05:59 13:59 21:59 Intake Total 1306.1162 240 Output Total 1275 1250 Balance 31.1162 -1250 240 Weight 59.693 kg Patient Weight 01/17/20 05:59 Weight 59.693 kg Intake & Output: Intake & Output 01/16/20 01/16/20 01/16/20 05:59 13:59 21:59 Intake Total 1306.1162 240 Output Total 1275 1250 Balance 31.1162 -1250 240 Weight 59.693 kg Intake: IV 1306.1162 Calcium Gluconate 5 Meq 1056.1162 Magnesium Sulfate 16.24 Meq Potassium Chloride 40 Meq Potassium Phosphate 50 Meq Infuvite Adult 10 ml In Clinimix 5%-20% Solution 1,000 ml @ 60 mls/hr IV Q17H [facility] Rx#: [id number] Intralipid 20% 250 ml @ 25 mls/ 250 hr IV MoWeFr@1600 [facility] Rx#: [id number] Oral 240 Output: Void Amount 850 1250 Urine/Stool Mix 425 Other: Urine Appearance Clear Clear Urine Color Pale Pale Urine Odor Normal Normal Stool Size Small Small Stool Color Brown Brown Stool Consistency Loose Liquid # Voids 1 1 # Bowel Movements 1 1 - Additional findings Additional findings: General - No acute distress Eyes - PERRLA, EOM intact ENT no rhinorrhea, no noticeable or palpable swelling, no redness or rash around throat or on face Neck supple, no JVD, no thyromegaly Respiratory: Lungs -clear, no wheezing or crackles. Cardiovascular - No tenderness, RRR no m/r/g, GI - Normal bowel sounds, no distended, soft. Extremeties - No edema, cyanosis or clubbing Hemo/lymphatic/immune no lymphadenopathy Neurological Alert and oriented x 3, no focal neurological deficits. Psychiatry flat affect Medical - PN: Obj Da - Labs CBC & Chem 7: 01/16/20 05:00 01/16/20 05:00 Labs: Abnormal Lab Results 01/16/20 01/16/20 01/15/20 05:00 05:00 05:20 RBC Hgb 10.3 L Hct 32.1 L RDW 15.1 H Lymph % (Auto) 10.[address] [place] % (Auto) Lymph # (Auto) 0.[address] [facility] # (Auto) 1.01 H Potassium Chloride 110 H Carbon Dioxide 20 L 20 L Creatinine 0.5 L Glucose 107 H Uric Acid 2.1 L Calcium 8.5 L 8.5 L Phosphorus Magnesium Total Protein 5.8 L Albumin 3.1 L 3.0 L HDL Cholesterol 30 L 01/15/20 01/14/20 01/14/20 05:20 05:00 05:00 RBC 2.63 L Hgb 10.5 L 7.3 L Hct 32.2 L 23.2 L RDW 14.7 H Lymph % (Auto) 12.[address] [facility] % (Auto) 12.2 H Lymph # (Auto) 1.[address] [place] [facility] # (Auto) 1.04 H Potassium 3.2 L Chloride 113 H Carbon Dioxide 20 L Creatinine Glucose 116 H Uric Acid Calcium 7.9 L Phosphorus 2.6 L Magnesium 1.4 L Total Protein 5.2 L Albumin 2.7 L HDL Cholesterol Meds: Medications Carvedilol (Coreg) 25 mg PO BIDCC [facility] Last Admin: 01/16/20 08:09 Dose: 25 mg Documented by: Cefepime HCl (Maxipime) 2 gm IV Q12H [facility]; Protocol Last Admin: 01/16/20 09:33 Dose: 2 gm Documented by: Clopidogrel Bisulfate (Plavix) 75 mg PO DAILY [facility] Last Admin: 01/16/20 08:09 Dose: 75 mg Documented by: Diagnostic Test (Pha) (Accu-Chek) 1 each FS Q6 [facility] Last Admin: 01/16/20 11:56 Dose: 1 each Documented by: Heparin Sodium (Porcine) (Heparin 10 Units/Ml Flush) 2 ml IV Q12 [facility] Last Admin: 01/16/20 08:10 Dose: 2 ml Documented by: Hydralazine HCl (Apresoline) 10 mg IV Q4HP PRN PRN Reason: Hypertension Hydromorphone HCl (Dilaudid) 0.5 mg IV Q2HP PRN; Protocol PRN Reason: Per Pain Protocol Last Admin: 01/09/20 17:05 Dose: 0.5 mg Documented by: Acetaminophen (Ofirmev) 1,000 mg in 100 mls @ 200 mls/hr IV Q6HP PRN; Protocol PRN Reason: Per Pain Protocol/Fever > 101 Last Infusion: 01/14/20 21:05 Dose: Infused Documented by: Fat Emulsion Intravenous (Intralipid 20%) 250 mls @ 25 mls/hr IV MoWeFr@1600 [facility] Last Infusion: 01/16/20 02:03 Dose: Infused Documented by: Calcium Gluconate 5 meq/Magnesium Sulfate 16.24 meq/Potassium Chloride 40 meq/Potassium Phosphate 50 meq/Multivitamins/Minerals 10 ml/Amino Acids 1,056.1162 mls @ 60 mls/hr IV Q17H [facility] Last Admin: 01/16/20 04:52 Dose: 60 mls/hr Documented by: Insulin Human Lispro (Humalog) 0 unit SQ Q6 [facility]; Protocol Last Admin: 01/16/20 11:58 Dose: Not Given Documented by: Lorazepam (Ativan) 0.5 mg IV Q4HP PRN PRN Reason: ANXIETY/SEDATION Ondansetron HCl (Zofran) 4 mg IV Q6HP PRN PRN Reason: Nausea And Vomiting Pantoprazole Sodium (Protonix) 40 mg IV BIDAC [facility] Last Admin: 01/16/20 07:33 Dose: 40 mg Documented by: Promethazine HCl (Phenergan) 12.5 mg IV Q4HP PRN; Protocol PRN Reason: Nausea/Vomiting Sodium Chloride (Saline Flush) 10 ml IV UD PRN PRN Reason: FLUSH Sodium Chloride (Saline Flush) 10 ml IV Q12 [facility] Last Admin: 01/16/20 08:13 Dose: 10 ml Documented by: Medical - PN: A/P - Time Spent With Patient Total time spent is greater than 50% in coordination of care (as documented) at patient's floor/unit and/or counseling patient: - Narrative A/P Narrative: Assessment: 1. Chest pain R07.9 2. CAD, s/p stent x 1 placement I25.10 3. HTN 4. Duodenal perforation K 63.1 5. Angiodysplasia of duodenum K31.819 Plan: 1. Hx of CAD, one episode of chest pain. Troponin negative x 2 EKG Mild Q waves in the aneroseptal leads. Hemoglobin a1c 5.5, LDL 37 Discussed the results with patient, who would like to stay in our hospital and does not want to go to other hospitals. Discussed with Dr. Blakely, who agreed to start po aspirin. Continue plavix. Control BP. Started ezetimibe 5mg daily (allergic to statin) She needs to see cardiology bell after discharge. She may need stress test or other workup and treatment. 2. Blood pressure is not controlled Resumed home BP meds today. Hydralazine IV as needed 3. Other medical issues Management by surgical team 4. DVT prophylaxis: By surgical team 5. CODE STATUS: Full Discussed with Dr. Blakely, I will sign off today. Feel free to call at anytime. Thank you Dr. Blakely for the opportunity to participate in the care of the pt. Medical - PN: Qual - VTE Deep Vein Thrombosis/Pulmonary Embolism Present on Admission: No
[2020-01-17] MEDS: INSULIN LISPRO 1 UNIT/0.01 ML UNIT SQ SCH ×2 (05:33→11:33)
[2020-01-17 06:52] LABS: Basophils # (Auto) 0.04 K/mcL (0.00-0.30); Basophils % (Auto) 0.5 % (0.0-2.0); Eosinophils # (Auto) 0.31 K/mcL (0.00-0.70); Eosinophils % (Auto) 3.7 % (0.0-7.0); Granulocytes % (Auto) 66.4 % (38.0-78.0); Hematocrit 35.8 % (34.1-44.9); Hemoglobin 11.5 g/dL (11.2-15.7); Lymphocytes % (Auto) 15.3 % (15.5-49.0); Mean Cell Volume 87.5 fL (80.0-100.0); Mean Corpuscular HGB Conc 32.1 g/dL (31.0-36.0); Mean Platelet Volume 9.4 fL (7.4-10.4); Monocytes % (Auto) 14.1 % (1.0-12.0); Platelet Count 284 K/mcL (140-440); RBC 4.09 M/mcL (3.59-5.38); WBC 8.5 K/mcL (4.50-11.00)
[2020-01-17] MEDS: PANTOPRAZOLE 40 MG VIAL IV SCH (08:06)
[2020-01-17] MEDS: CARVEDILOL 12.5 MG TABLET PO SCH (08:07)
[2020-01-17 08:15] LABS: ALT/SGPT 20 U/l (0-40); AST/SGOT 16 U/l (0-37); Albumin 3.4 gm/dL (3.2-5.2); Alkaline Phosphatase 79 U/L (39-117); Bilirubin,Total 0.3 mg/dL (0.0-1.0); Blood Urea Nitrogen 17 mg/dl (8-23); Calcium 9.5 mg/dl (8.6-10.4); Carbon Dioxide 21 mmol/L (22-30); Chloride 103 mmol/L (96-108); Globulin 3.3 gm/dL (2.2-3.7); Glomerular Filtration Rate 92; Glucose 108 mg/dL (70-105)
[2020-01-17] MEDS: CLOPIDOGREL 75 MG TABLET PO SCH (08:16)
[2020-01-17] MEDS: CEFEPIME 2 GM VIAL IV SCH (08:16)
[2020-01-17] MEDS: 0.9 % SODIUM CHLORIDE 10 ML SYRINGE IV SCH (08:59)
[2020-01-17] MEDS ORDERED: EZETIMIBE 10 MG TABLET PO SCH (09:00)
[2020-01-17] MEDS ORDERED: ASPIRIN 81 MG TAB.CHEW PO SCH (09:00)
[2020-01-17] MEDS ORDERED: POTASSIUM CHLORIDE IV SCH (13:00)
[2020-01-17] MEDS ORDERED: CALCIUM GLUCONATE IV SCH (13:00)
[2020-01-17] MEDS ORDERED: [UNRECOGNIZED DRUG - OTHER] IV SCH (13:00)
[2020-01-17] MEDS ORDERED: MAGNESIUM SULFATE IV SCH (13:00)
--- NOTE | 2020-01-17 13:16 | Discharge Summary ---
Providers - Providers Patient information: Note initiated : 01/17/20 at 1:10 pm Service Date, if different from initiated Date: [] Patient: Rema Benitez 69 y/o F admitted on 01/09/20 for Perforated duodenum. Chief Complaint: [] Date of admission: 01/09/20 Discharge date: 01/17/20 Attending physician: Anam Blakely HOSPITALIST--- DR FUCHS Hospitalization Hospital Course: 69-year-old female admitted for evaluation of microperforation of duodenum due to electrocautery AVM'S. Patient underwent endoscopy on the day prior to admission and she had to areas of AVMs or telangiectasias in the duodenum. These were cauterized and the patient was discharged home. During the evening she developed severe abdominal pain with nausea. She will to the emergency room where a CT showed free paraduodenal air and fluid compatible with perforation. She was admitted for nonoperative treatment. She was placed on antibiotics and started on nasogastric decompression. She was monitored for 4 days and seemed to be improving. Follow-up C3 on the showed continued increase in fluid but but less free air. A PICC line was started at that time and she was started on TPN. She has been continued on TPN since then. Patient has done very well. CT was done yesterday and it shows an organized collection of fluid with minimal air in the area of concern. The fluid collection has not increased. The patient is asymptomatic so she was started on clear liquids. She tolerated full liquids last evening and has tolerated today without difficulty. Her white count has returned to normal. Patient is clinically stable and will be discharged on cefuroxime. I will do a follow-up CT in 2 weeks. On 14 January she had some mid substernal chest pain which lasted about 5 minutes. It spontaneously resolved. Chest x-ray suggested slight T-wave changes however troponins were totally negative. She has remained asymptomatic since the . 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 She had been on Plavix and this was continued throughout her hospitalization. Discharge diagnosis: postprocedural duodenal perforation Secondary discharge diagnosis: Coronary artery disease status post stent right coronary artery with chest pain but without evidence NSTEMI. She remains asymptomatic with regards to her chest discomfort at this time Hypertension Chronic kidney disease Peripheral vascular disease Reason for admission: abdominal pain post upper endoscopy with cauterization of vascular malforma Procedures: None Pertinent studies/significant findings: CT of abdomen and pelvis with contrast 2 Complications: None Exam Temp Pulse Resp BP Pulse Ox 98.3 F 67 16 116/57 98 01/17/20 12:00 01/17/20 12:00 01/17/20 12:00 01/17/20 12:00 01/17/20 12:00 - General physical appearance well developed, well nourished, no distress - Eyes PERRL, normal ocular movement - ENT normal pinna, normal nares, normal mucosa, no hearing loss, no congestion - Head Head exam IM: Present: atraumatic, normocephalic - Neck no masses, no bruits, trachea midline, no lymphadenopathy, no venous distension - Cardiovascular Cardiovascular exam IM: Present: normal rate and rhythm - Respiratory normal expansion, normal respiratory effort, clear to percussion, clear to auscultation - Abdomen Abdomen: Present: soft, non tender (abdominal exam is totally benign; she does not have any tenderness nor is there any distention), bowel sounds Hernia: Present: none - Genitourinary Present: normal external genitalia - Integumentary Present: no rash, no growths, no abnormal pigmentation - Neurologic Present: normal coordination, normal sensation - Musculoskeletal Present: normal gait, normal posture - Psychiatric Present: oriented to time, oriented to person, oriented to place, speech is normal, memory intact Discharge Plan - Patient/Caregiver Discharge Instructions Activity: increase activity as tolerated Diet: Full Liquid (advance to soft diet starting january then advanced to regular diet) Additional Instructions: Patient to have CT of abdomen and pelvis with IV contrast 2 days prior to next office appointment Prescriptions: Cefuroxime [Ceftin] 500 mg PO Q12 #20 tab Transmission Status: Pending to [facility] #[id number] - Follow up Plan Follow up with: Leisa Auguste ARNP [Primary Care Provider] - Anam Blakely MD [Physician] - 01/30/20 9:15 am Disposition: Home, Self-Care Prognosis: Good Rehab Potential: Good I certify that the patient requires SNF services.: No Overall status at discharge: patient is progressing back to baseline (128 128 and this is scheduled for CT abdomen and pelvis with IV contrast about 2 or 3 days before next) Pending Studies Resuscitation Status Limited Code Diet Full Liquid Diet Start MonJanuary 16 0847 Aspirin (Aspirin) 81 mg PO DAILY [facility] Last Admin: 01/17/20 08:07 Dose: 81 mg Documented by: LINDA Carvedilol (Coreg) 25 mg PO BIDCC [facility] Last Admin: 01/17/20 08:07 Dose: 25 mg Documented by: Admin: 01/16/20 16:50 Dose: 25 mg Documented by: Admin: 01/16/20 08:09 Dose: 25 mg Documented by: Admin: 01/15/20 16:27 Dose: 25 mg Documented by: Admin: 01/15/20 08:57 Dose: 25 mg Documented by: Admin: 01/14/20 16:55 Dose: 25 mg Documented by: Admin: 01/14/20 08:08 Dose: 25 mg Documented by: Admin: 01/13/20 17:00 Dose: 25 mg Documented by: Admin: 01/13/20 09:40 Dose: 25 mg Documented by: Admin: 01/12/20 17:11 Dose: 25 mg Documented by: Admin: 01/12/20 08:11 Dose: 25 mg Documented by: Admin: 01/11/20 17:34 Dose: 25 mg Documented by: Admin: 01/11/20 08:06 Dose: 25 mg Documented by: Admin: 01/10/20 17:38 Dose: 25 mg Documented by: Admin: 01/10/20 11:29 Dose: 25 mg Documented by: Admin: 01/09/20 20:33 Dose: 25 mg Documented by: ARNOLDO Cefepime HCl (Maxipime) 2 gm IV Q12H [facility]; Protocol Last Admin: 01/17/20 08:16 Dose: 2 gm Documented by: Admin: 01/16/20 20:36 Dose: 2 gm Documented by: Admin: 01/16/20 09:33 Dose: 2 gm Documented by: Admin: 01/15/20 21:23 Dose: 2 gm Documented by: Admin: 01/15/20 08:59 Dose: 2 gm Documented by: Admin: 01/14/20 21:07 Dose: 2 gm Documented by: Admin: 01/14/20 08:08 Dose: 2 gm Documented by: Admin: 01/13/20 20:16 Dose: 2 gm Documented by: Admin: 01/13/20 10:21 Dose: 2 gm Documented by: Admin: 01/12/20 20:22 Dose: 2 gm Documented by: Admin: 01/12/20 08:11 Dose: 2 gm Documented by: Admin: 01/11/20 20:58 Dose: 2 gm Documented by: Admin: 01/11/20 08:11 Dose: 2 gm Documented by: Admin: 01/10/20 20:41 Dose: 2 gm Documented by: Admin: 01/10/20 09:19 Dose: 2 gm Documented by: Admin: 01/09/20 19:13 Dose: 2 gm Documented by: ARNOLDO Clopidogrel Bisulfate (Plavix) 75 mg PO DAILY [facility] Admin: 01/17/20 08:16 Dose: 75 mg Documented by: Admin: 01/16/20 08:09 Dose: 75 mg Documented by: Admin: 01/15/20 08:57 Dose: 75 mg Documented by: Admin: 01/14/20 08:08 Dose: 75 mg Documented by: Admin: 01/13/20 09:40 Dose: 75 mg Documented by: Admin: 01/12/20 08:10 Dose: 75 mg Documented by: Admin: 01/11/20 08:05 Dose: 75 mg Documented by: Admin: 01/10/20 11:29 Dose: 75 mg Documented by: JG Diagnostic Test (Pha) (Accu-Chek) 1 each FS Q6 [facility] Last Admin: 01/17/20 11:32 Dose: 1 each Documented by: Admin: 01/17/20 05:33 Dose: 1 each Documented by: Admin: 01/16/20 23:38 Dose: 1 each Documented by: Admin: 01/16/20 17:10 Dose: 1 each Documented by: Admin: 01/16/20 11:56 Dose: 1 each Documented by: Admin: 01/16/20 04:53 Dose: 1 each Documented by: Admin: 01/15/20 23:53 Dose: 1 each Documented by: Admin: 01/15/20 17:44 Dose: 1 each Documented by: Admin: 01/15/20 12:01 Dose: 1 each Documented by: Admin: 01/15/20 04:58 Dose: 1 each Documented by: Admin: 01/14/20 23:39 Dose: 1 each Documented by: Admin: 01/14/20 16:57 Dose: 1 each Documented by: Admin: 01/14/20 11:19 Dose: 1 each Documented by: Admin: 01/14/20 08:12 Dose: 1 each Documented by: LINDA Ezetimibe (Zetia) 5 mg PO DAILY [facility] Last Admin: 01/17/20 08:06 Dose: 5 mg Documented by: LINDA Heparin Sodium (Porcine) (Heparin 10 Units/Ml Flush) 2 ml IV Q12 [facility] Last Admin: 01/17/20 08:08 Dose: 2 ml Documented by: Admin: 01/16/20 20:35 Dose: 2 ml Documented by: Admin: 01/16/20 08:10 Dose: 2 ml Documented by: Admin: 01/15/20 21:24 Dose: 2 ml Documented by: Admin: 01/15/20 09:02 Dose: 2 ml Documented by: Admin: 01/14/20 21:08 Dose: Not Given Documented by: Admin: 01/14/20 08:11 Dose: 2 ml Documented by: Admin: 01/13/20 20:17 Dose: 2 ml Documented by: Admin: 01/13/20 10:33 Dose: Not Given Documented by: Admin: 01/12/20 20:23 Dose: 2 ml Documented by: MEJIA Hydromorphone HCl (Dilaudid) 0.5 mg IV Q2HP PRN; Protocol PRN Reason: Per Pain Protocol Last Admin: 01/09/20 17:05 Dose: 0.5 mg Documented by: JG Acetaminophen (Ofirmev) 1,000 mg in 100 mls @ 200 mls/hr IV Q6HP PRN; Protocol PRN Reason: Per Pain Protocol/Fever > 101 Last Infusion: 01/14/20 21:05 Dose: 0 mls/hr Documented by: Admin: 01/14/20 20:37 Dose: 200 mls/hr Documented by: Infusion: 01/10/20 04:18 Dose: 0 mls/hr Documented by: Admin: 01/09/20 19:14 Dose: 200 mls/hr Documented by: ARNOLDO Fat Emulsion Intravenous (Intralipid 20%) 250 mls @ 25 mls/hr IV MoWeFr@1600 [facility] Last Infusion: 01/16/20 02:03 Dose: 0 mls/hr Documented by: Admin: 01/15/20 15:52 Dose: 25 mls/hr Documented by: GABE Insulin Human Lispro (Humalog) 0 unit SQ Q6 [facility]; Protocol Last Admin: 01/17/20 11:33 Dose: Not Given Documented by: Admin: 01/17/20 05:33 Dose: Not Given Documented by: Admin: 01/16/20 23:39 Dose: Not Given Documented by: Admin: 01/16/20 17:11 Dose: Not Given Documented by: Admin: 01/16/20 11:58 Dose: Not Given Documented by: Admin: 01/16/20 04:54 Dose: Not Given Documented by: Admin: 01/15/20 23:57 Dose: 2 units Documented by: Admin: 01/15/20 17:48 Dose: Not Given Documented by: Admin: 01/15/20 12:16 Dose: Not Given Documented by: Admin: 01/15/20 04:59 Dose: Not Given Documented by: Admin: 01/14/20 23:43 Dose: 2 units Documented by: Admin: 01/14/20 17:02 Dose: 4 units Documented by: LINDA Pantoprazole Sodium (Protonix) 40 mg IV BIDAC [facility] Last Admin: 01/17/20 08:06 Dose: 40 mg Documented by: Admin: 01/16/20 16:50 Dose: 40 mg Documented by: Admin: 01/16/20 07:33 Dose: 40 mg Documented by: Admin: 01/15/20 16:29 Dose: 40 mg Documented by: Admin: 01/15/20 07:30 Dose: 40 mg Documented by: Admin: 01/14/20 16:13 Dose: 40 mg Documented by: [email or web address] Admin: 01/14/20 06:30 Dose: 40 mg Documented by: Admin: 01/13/20 17:00 Dose: 40 mg Documented by: Admin: 01/13/20 07:15 Dose: 40 mg Documented by: Admin: 01/12/20 17:10 Dose: 40 mg Documented by: Admin: 01/12/20 07:23 Dose: 40 mg Documented by: Admin: 01/11/20 17:34 Dose: 40 mg Documented by: Admin: 01/11/20 07:31 Dose: 40 mg Documented by: Admin: 01/10/20 16:41 Dose: 40 mg Documented by: Admin: 01/10/20 07:29 Dose: 40 mg Documented by: Admin: 01/09/20 17:07 Dose: 40 mg Documented by: JG Sodium Chloride (Saline Flush) 10 ml IV Q12 [facility] Admin: 01/17/20 08:59 Dose: 10 ml Documented by: Admin: 01/16/20 20:35 Dose: 10 ml Documented by: Admin: 01/16/20 08:13 Dose: 10 ml Documented by: Admin: 01/15/20 21:23 Dose: 10 ml Documented by: Admin: 01/15/20 09:07 Dose: 10 ml Documented by: Admin: 01/14/20 21:07 Dose: 10 ml Documented by: Admin: 01/14/20 08:11 Dose: 10 ml Documented by: Admin: 01/13/20 20:16 Dose: 10 ml Documented by: Admin: 01/13/20 10:36 Dose: 10 ml Documented by: Admin: 01/12/20 20:23 Dose: 10 ml Documented by: MEJIA Shift Summary 01/17/20 04:14 Shift Summary by Mio Ayala Pt has rested well tonight. She has denied pain or nausea all shift. No skin issues. TPN infusing to 3 lumen PICC LT arm @ 60ml/hr. Pt is up to BSC (I) - voiding QS. VS - WNL on R.A.. She is A&O x4, calm, pleasant, & cooperative. Pt hopes to D/C home later today. Initialized on 01/17/20 04:14 - END OF NOTE
--- NOTE | 2020-01-17 13:39 | Discharge Summary ---
Providers - Providers Patient information: Note initiated : 01/17/20 at 1:07 pm Service Date, if different from initiated Date: [] Patient: Rema Benitez 69 y/o F admitted on 01/09/20 for Perforated duodenum. Chief Complaint: [] Date of admission: 01/09/20 Discharge date: 01/17/20 Attending physician: Anam Blakely hospitalist---- DR FUCHS Exam Temp Pulse Resp BP Pulse Ox 98.3 F 67 16 116/57 98 01/17/20 12:00 01/17/20 12:00 01/17/20 12:00 01/17/20 12:00 01/17/20 12:00 Discharge Plan - Follow up Plan Follow up with: Leisa Auguste ARNP [Primary Care Provider] - Anam Blakely MD [Physician] - 01/30/20 9:15 am Prognosis: Good Pending Studies Resuscitation Status Limited Code Diet Full Liquid Diet Start MonJanuary 16 0847 Aspirin (Aspirin) 81 mg PO DAILY [facility] Last Admin: 01/17/20 08:07 Dose: 81 mg Documented by: LINDA [facility] Admin: 01/17/20 08:07 Dose: 25 mg Documented by: Admin: 01/16/20 16:50 Dose: 25 mg Documented by: Admin: 01/16/20 08:09 Dose: 25 mg Documented by: Admin: 01/15/20 16:27 Dose: 25 mg Documented by: Admin: 01/15/20 08:57 Dose: 25 mg Documented by: Admin: 01/14/20 16:55 Dose: 25 mg Documented by: Admin: 01/14/20 08:08 Dose: 25 mg Documented by: Admin: 01/13/20 17:00 Dose: 25 mg Documented by: Admin: 01/13/20 09:40 Dose: 25 mg Documented by: Admin: 01/12/20 17:11 Dose: 25 mg Documented by: Admin: 01/12/20 08:11 Dose: 25 mg Documented by: Admin: 01/11/20 17:34 Dose: 25 mg Documented by: Admin: 01/11/20 08:06 Dose: 25 mg Documented by: Admin: 01/10/20 17:38 Dose: 25 mg Documented by: Admin: 01/10/20 11:29 Dose: 25 mg Documented by: Admin: 01/09/20 20:33 Dose: 25 mg Documented by: ARNOLDO Cefepime HCl (Maxipime) 2 gm IV Q12H [facility]; Protocol Last Admin: 01/17/20 08:16 Dose: 2 gm Documented by: Admin: 01/16/20 20:36 Dose: 2 gm Documented by: Admin: 01/16/20 09:33 Dose: 2 gm Documented by: Admin: 01/15/20 21:23 Dose: 2 gm Documented by: Admin: 01/15/20 08:59 Dose: 2 gm Documented by: Admin: 01/14/20 21:07 Dose: 2 gm Documented by: Admin: 01/14/20 08:08 Dose: 2 gm Documented by: Admin: 01/13/20 20:16 Dose: 2 gm Documented by: Admin: 01/13/20 10:21 Dose: 2 gm Documented by: Admin: 01/12/20 20:22 Dose: 2 gm Documented by: Admin: 01/12/20 08:11 Dose: 2 gm Documented by: Admin: 01/11/20 20:58 Dose: 2 gm Documented by: Admin: 01/11/20 08:11 Dose: 2 gm Documented by: Admin: 01/10/20 20:41 Dose: 2 gm Documented by: Admin: 01/10/20 09:19 Dose: 2 gm Documented by: Admin: 01/09/20 19:13 Dose: 2 gm Documented by: ARNOLDO Clopidogrel Bisulfate (Plavix) 75 mg PO DAILY [facility] Last Admin: 01/17/20 08:16 Dose: 75 mg Documented by: Admin: 01/16/20 08:09 Dose: 75 mg Documented by: Admin: 01/15/20 08:57 Dose: 75 mg Documented by: Admin: 01/14/20 08:08 Dose: 75 mg Documented by: Admin: 01/13/20 09:40 Dose: 75 mg Documented by: Admin: 01/12/20 08:10 Dose: 75 mg Documented by: Admin: 01/11/20 08:05 Dose: 75 mg Documented by: Admin: 01/10/20 11:29 Dose: 75 mg Documented by: JG Diagnostic Test (Pha) (Accu-Chek) 1 each FS Q6 [facility] Last Admin: 01/17/20 11:32 Dose: 1 each Documented by: Admin: 01/17/20 05:33 Dose: 1 each Documented by: Admin: 01/16/20 23:38 Dose: 1 each Documented by: Admin: 01/16/20 17:10 Dose: 1 each Documented by: Admin: 01/16/20 11:56 Dose: 1 each Documented by: Admin: 01/16/20 04:53 Dose: 1 each Documented by: Admin: 01/15/20 23:53 Dose: 1 each Documented by: Admin: 01/15/20 17:44 Dose: 1 each Documented by: Admin: 01/15/20 12:01 Dose: 1 each Documented by: Admin: 01/15/20 04:58 Dose: 1 each Documented by: Admin: 01/14/20 23:39 Dose: 1 each Documented by: Admin: 01/14/20 16:57 Dose: 1 each Documented by: Admin: 01/14/20 11:19 Dose: 1 each Documented by: Admin: 01/14/20 08:12 Dose: 1 each Documented by: LINDA Ezetimibe (Zetia) 5 mg PO DAILY [facility] Last Admin: 01/17/20 08:06 Dose: 5 mg Documented by: LINDA Heparin Sodium (Porcine) (Heparin 10 Units/Ml Flush) 2 ml IV Q12 [facility] Last Admin: 01/17/20 08:08 Dose: 2 ml Documented by: Admin: 01/16/20 20:35 Dose: 2 ml Documented by: Admin: 01/16/20 08:10 Dose: 2 ml Documented by: Admin: 01/15/20 21:24 Dose: 2 ml Documented by: Admin: 01/15/20 09:02 Dose: 2 ml Documented by: Admin: 01/14/20 21:08 Dose: Not Given Documented by: Admin: 01/14/20 08:11 Dose: 2 ml Documented by: Admin: 01/13/20 20:17 Dose: 2 ml Documented by: Admin: 01/13/20 10:33 Dose: Not Given Documented by: Admin: 01/12/20 20:23 Dose: 2 ml Documented by: MEJIA Hydromorphone HCl (Dilaudid) 0.5 mg IV Q2HP PRN; Protocol PRN Reason: Per Pain Protocol Last Admin: 01/09/20 17:05 Dose: 0.5 mg Documented by: JG Acetaminophen (Ofirmev) 1,000 mg in 100 mls @ 200 mls/hr IV Q6HP PRN; Protocol PRN Reason: Per Pain Protocol/Fever > 101 Last Infusion: 01/14/20 21:05 Dose: 0 mls/hr Documented by: Admin: 01/14/20 20:37 Dose: 200 mls/hr Documented by: Infusion: 01/10/20 04:18 Dose: 0 mls/hr Documented by: Admin: 01/09/20 19:14 Dose: 200 mls/hr Documented by: ARNOLDO Fat Emulsion Intravenous (Intralipid 20%) 250 mls @ 25 mls/hr IV MoWeFr@1600 [facility] Last Infusion: 01/16/20 02:03 Dose: 0 mls/hr Documented by: Admin: 01/15/20 15:52 Dose: 25 mls/hr Documented by: GABE Insulin Human Lispro (Humalog) 0 unit SQ Q6 [facility]; Protocol Last Admin: 01/17/20 11:33 Dose: Not Given Documented by: Admin: 01/17/20 05:33 Dose: Not Given Documented by: Admin: 01/16/20 23:39 Dose: Not Given Documented by: Admin: 01/16/20 17:11 Dose: Not Given Documented by: Admin: 01/16/20 11:58 Dose: Not Given Documented by: Admin: 01/16/20 04:54 Dose: Not Given Documented by: Admin: 01/15/20 23:57 Dose: 2 units Documented by: Admin: 01/15/20 17:48 Dose: Not Given Documented by: Admin: 01/15/20 12:16 Dose: Not Given Documented by: Admin: 01/15/20 04:59 Dose: Not Given Documented by: Admin: 01/14/20 23:43 Dose: 2 units Documented by: Admin: 01/14/20 17:02 Dose: 4 units Documented by: LINDA Pantoprazole Sodium (Protonix) 40 mg IV BIDAC [facility] Admin: 01/17/20 08:06 Dose: 40 mg Documented by: Admin: 01/16/20 16:50 Dose: 40 mg Documented by: Admin: 01/16/20 07:33 Dose: 40 mg Documented by: Admin: 01/15/20 16:29 Dose: 40 mg Documented by: Admin: 01/15/20 07:30 Dose: 40 mg Documented by: Admin: 01/14/20 16:13 Dose: 40 mg Documented by: [email or web address] Admin: 01/14/20 06:30 Dose: 40 mg Documented by: Admin: 01/13/20 17:00 Dose: 40 mg Documented by: Admin: 01/13/20 07:15 Dose: 40 mg Documented by: Admin: 01/12/20 17:10 Dose: 40 mg Documented by: Admin: 01/12/20 07:23 Dose: 40 mg Documented by: Admin: 01/11/20 17:34 Dose: 40 mg Documented by: Admin: 01/11/20 07:31 Dose: 40 mg Documented by: Admin: 01/10/20 16:41 Dose: 40 mg Documented by: Admin: 01/10/20 07:29 Dose: 40 mg Documented by: Admin: 01/09/20 17:07 Dose: 40 mg Documented by: JG Sodium Chloride (Saline Flush) 10 ml IV Q12 [facility] Admin: 01/17/20 08:59 Dose: 10 ml Documented by: Admin: 01/16/20 20:35 Dose: 10 ml Documented by: Admin: 01/16/20 08:13 Dose: 10 ml Documented by: Admin: 01/15/20 21:23 Dose: 10 ml Documented by: Admin: 01/15/20 09:07 Dose: 10 ml Documented by: Admin: 01/14/20 21:07 Dose: 10 ml Documented by: Admin: 01/14/20 08:11 Dose: 10 ml Documented by: Admin: 01/13/20 20:16 Dose: 10 ml Documented by: Admin: 01/13/20 10:36 Dose: 10 ml Documented by: Admin: 01/12/20 20:23 Dose: 10 ml Documented by: MEJIA Shift Summary 01/17/20 04:14 Shift Summary by Mio Ayala Pt has rested well tonight. She has denied pain or nausea all shift. No skin issues. TPN infusing to 3 lumen PICC LT arm @ 60ml/hr. Pt is up to BSC (I) - voiding QS. VS - WNL on R.A.. She is A&O x4, calm, pleasant, & cooperative. Pt hopes to D/C home later today. Initialized on 01/17/20 04:14 - END OF NOTE
--- NOTE | 2020-01-27 12:15 | Internal Med History&Physical ---
Medical - H&P: [facility] Patient information: Note initiated : 01/27/20 at 12:14 pm Service Date, if different from initiated Date: [01/09/2020] Patient: Rema Benitez 69 y/o F admitted on 01/09/20 for Perforated duodenum. Chief Complaint: [] History of present illness: Ms. 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 She was seen by the ER physician and, after consultation with me, a CT scan was done, which revealed evidence of a retroperitoneal perforation with air and fluid tracking down the right gutter. Dr. Blakely was consulted. On examination, she was afebrile and stable vital signs. When I saw her, a NG tube had already been placed. Her abdomen was soft and she was actually feeling better. There were no peritoneal signs. Chest was clear and heart sounds were normal. She has been started on broad spectrum antibiotic therapy and will receive NG suction and IV fluids. It is probable that this lesion will recover uneventfully. Dr. Blakely will assume her care and I will follow her until my departure later this week. My nurse practitioner, Fallon Syed, will check in as needed. Dr. Blakely has my number and can consult me if any further intervention is required on our part. Sabrina also spoken to the radiologist. Medical - H&P: Meds Home Medications Medication Instructions Recorded Confirmed Type multivitamin 1 tab PO QDAY 05/22/15 01/09/20 History aspirin 81 mg tablet,delayed 81 mg PO QDAY 12/24/15 01/09/20 History release omega-3 fatty acids 1,000 mg 4,000 mg PO QDAY cap 11/20/17 01/09/20 History capsule omega red 1 capsule PO QDAY 04/26/18 01/09/20 History cholecalciferol (vitamin D3) 25 1,000 unit PO QDAY 04/30/19 01/09/20 History mcg (1,000 unit) capsule coenzyme Q10 120 mg PO QDAY 07/19/19 01/09/20 History cyclobenzaprine 10 mg tablet 10 mg PO TID PRN #90 tab 09/03/19 01/09/20 Rx cranberry extract 300 mg tablet 300 mg PO QDAY 09/30/19 01/09/20 History atorvastatin 80 mg tablet 80 mg PO QHS 11/20/19 01/09/20 History carvedilol 25 mg tablet 25 mg PO BID 11/20/19 01/09/20 History ezetimibe 10 mg tablet 10 mg PO QDAY 11/20/19 01/09/20 History febuxostat 80 mg tablet 40 mg PO QDAY tab 11/25/19 01/09/20 History soy isofla-blk cohosh-mag bark 155 1 cap PO DAILY 11/25/19 01/09/20 History mg capsule vitamin B complex 1 cap PO QDAY 11/25/19 01/09/20 History acetaminophen 325 mg tablet 650 mg PO Q4H PRN 12/09/19 01/09/20 History Clopidogrel Bisulfate [Plavix] 75 mg PO DAILY 01/06/20 01/09/20 History Pantoprazole [Protonix] 40 mg PO ONCE 01/06/20 01/09/20 History Cefuroxime [Ceftin] 500 mg PO Q12 #20 tab 01/17/20 Rx Pantoprazole [Protonix] 40 mg PO BIDAC #60 tab 01/17/20 Rx Allergies Allergy/AdvReac Type Severity Reaction Status Date / Time clindamycin Allergy Mild red rash, Verified 01/13/20 10:08 itching Amoxicillin [From Augmentin] Allergy Unknown pt unsure Verified 01/09/20 11:53 clavulanic acid Allergy Unknown pt unsure Verified 01/09/20 11:53 [From Augmentin] Htzvkrp-Iby-Wsn Reductase Allergy Unknown Unknown Verified 01/09/20 11:53 Inhibitor fenofibrate AdvReac Mild headache, Verified 01/13/20 10:08 body ache Medical - H&P: Exam - Constitutional Vitals: Temp Pulse Resp BP Pulse Ox 98.3 F 67 16 143/64 98 01/17/20 15:26 01/17/20 15:26 01/17/20 15:26 01/17/20 15:26 01/17/20 15:26 Medical - H&P: Reslt - Labs CBC & Chem 7: 01/17/20 05:00 01/17/20 05:00 Medical - H&P: Qual - VTE Deep Vein Thrombosis/Pulmonary Embolism Present on Admission: No
--- NOTE | 2020-01-27 12:16 | Internal Med Progress Note ---
Medical - PN: Subj Patient information: Note initiated : 01/27/20 at 12:16 pm Service Date, if different from initiated Date: [01/11/2020] Patient: Rema Benitez 69 y/o F admitted on 01/09/20 for Perforated duodenum. Chief Complaint: [] Interval history: Mrs. Benitze continues to do reasonably well. Her abdominal pain is much less severe. Her abdomen is soft and nontender and she is passing some gas. Dr. Blakely will continue to supervise her care. - Constitutional Vitals: Vital Signs Temp Pulse Resp BP Pulse Ox 98.3 F 67 16 143/64 98 01/17/20 15:26 01/17/20 15:26 01/17/20 15:26 01/17/20 15:26 01/17/20 15:26 Medical - PN: Obj Da - Labs CBC & Chem 7: 01/17/20 05:00 01/17/20 05:00 Medical - PN: A/P - Time Spent With Patient Total time spent is greater than 50% in coordination of care (as documented) at patient's floor/unit and/or counseling patient: Medical - PN: Qual - VTE Deep Vein Thrombosis/Pulmonary Embolism Present on Admission: No
--- NOTE | 2020-01-27 12:16 | Internal Med Progress Note ---
Medical - PN: Subj Patient information: Note initiated : 01/27/20 at 12:15 pm Service Date, if different from initiated Date: [01/10/2020] Patient: Rema Benitez 69 y/o F admitted on 01/09/20 for Perforated duodenum. Chief Complaint: [] Interval history: Mrs. Benitez is comfortable and not requiring much in the way of medication. Her abdomen is soft and nontender and she is comfortable, although, of course, she finds the NG tube a bit difficult. I reassured her that things appear to be improving. She continues to be afebrile and vital signs and labs are unremarkable. - Constitutional Vitals: Vital Signs Temp Pulse Resp BP Pulse Ox 98.3 F 67 16 143/64 98 01/17/20 15:26 01/17/20 15:26 01/17/20 15:26 01/17/20 15:26 01/17/20 15:26 Medical - PN: Obj Da - Labs CBC & Chem 7: 01/17/20 05:00 01/17/20 05:00 Medical - PN: A/P - Time Spent With Patient Total time spent is greater than 50% in coordination of care (as documented) at patient's floor/unit and/or counseling patient: Medical - PN: Qual - VTE Deep Vein Thrombosis/Pulmonary Embolism Present on Admission: No
== END 2020-01-17 14:45 | disposition home or self-care (01) | DRG 920 ==
LOC: ED 11:53 → MEDSUR 16:07
PROVIDERS: ADMIT Family Medicine Adult Medicine; ATTEND Family Medicine Adult Medicine